=== PATIENT | male | born 1945 | race Caucasian/White ===

== ENCOUNTER 2019-11-19 11:52 | Emergency (ER) | payer OTHER ==
[2019-11-19 12:12] VITALS: RESP 18; TEMP 98.3
[2019-11-19] MEDS ORDERED: SODIUM CHLORIDE 0.9% 1,000 ML IV STA (12:37)
[2019-11-19] MEDS ORDERED: KETOROLAC 15 MG/ML 1 ML VIAL IVP STA (12:37)
--- NOTE | 2019-11-19 13:19 | ED ---
General Adult HPI - General Chief complaint: Abdominal Pain Stated complaint: Back Pain-poss kidney stone Time Seen by Provider: 11/19/19 12:22 Source: patient Mode of arrival: wheelchair Limitations: no limitations - History of Present Illness Initial comments: patient is a 73-year-old male, history dementia, presenting to emergency Department with complaints of left-sided low back and left abdominal pain has been going on for 6 days. Patient's is here with him and is helping with history. states that they went to [facility] 3 days ago and was found to have a large kidney stone and decreased kidney function. Patient states they wanted to admit him over patient would not stay. states they have been out most of the night with pain and unable to sleep. Patient was not given any pain meds. states that patient was having intermittent fevers but has not had any in the last 24 hours. Patient has had mild nausea, no vomiting or diarrhea. Does admit to history of colon cancer and does have mesh in his abdomen as well as appendectomy. He denies any chest pains, shortness of breath. He has no further complaints at this time. Upon arrival to the ER, his vital signs are stable. - Related Data Previous Rx's Medication Instructions Recorded Hydrocodone/Acetaminophen [[place] 1 tab PO Q6HR PRN #10 tab 11/19/19 5-325] Tamsulosin [Flomax] 0.4 mg PO DAILY #7 cap 11/19/19 Allergies Allergy/AdvReac Type Severity Reaction Status Date / Time Penicillins Allergy Rash/Hives Verified 11/19/19 12:16 Review of Systems ROS Statement: Those systems with pertinent positive or pertinent negative responses have been documented in the HPI. ROS Other: All systems not noted in ROS Statement are negative. Past Medical History Past Medical History: Cancer, Dementia, Hypertension History of Any Multi-Drug Resistant Organisms: None Reported Past Surgical History: Appendectomy, Hernia Repair Additional Past Surgical History / Comment(s): colon cancer surgery, Past Psychological History: No Psychological Hx Reported Smoking Status: Former smoker Past Alcohol Use History: None Reported Past Drug Use History: None Reported General Exam - General Exam Comments Initial Comments: GENERAL: Patient is well-developed and well-nourished. Patient is nontoxic and in no acute distress. HEAD: Atraumatic, normocephalic. EYES: Pupils equal round and reactive to light, extraocular movements intact, sclera anicteric, conjunctiva are normal. Eyelids were unremarkable. ENT: TMs normal, nares patent, oropharynx clear without exudates. Moist mucous membranes. NECK: Normal range of motion, supple without lymphadenopathy or JVD. LUNGS: Unlabored respirations. Breath sounds clear to auscultation bilaterally and equal. No wheezes rales or rhonchi. HEART: Regular rate and rhythm without murmurs, rubs or gallops. ABDOMEN: left-sided abdominal pain, left flank pain. Soft, normoactive bowel sounds. No guarding, no rebound. No masses appreciated. : Deferred MUSCULOSKELETAL: Normal extremities with adequate strength and normal range of motion, no pitting or edema. No clubbing or cyanosis. NEUROLOGICAL: Patient is alert and oriented x 3. Motor and sensory are also intact. Cranial nerves II through XII grossly intact. Symmetrical smile. Normal speech, normal gait. history of dementia. PSYCH: Normal mood, normal affect. SKIN: Warm, Dry, normal turgor, no rashes or lesions noted. Limitations: no limitations Course Vital Signs 11/19/19 11/19/19 12:07 14:42 Temperature 98.3 F Pulse Rate 61 65 Respiratory 18 18 Rate Blood Pressure 155/87 120/78 O2 Sat by Pulse 98 98 Oximetry Medical Decision Making - Medical Decision Making Patient is a 73-year-old male here for a recheck of his left-sided kidney stone. He was seen at [facility] 3 days ago. We did obtain records from them. Current vitals are stable. Patient's white count is normal, BUN is 32, creatinine is 2.42 which has improved from 3 days ago, which were 40/3.11. Lactic acid is normal, urine shows no evidence of infection. Patient is currently on Keflex. I did review computed tomography scan that was performed 2 days ago reveals a 5 mm obstructing calculus in the left ureter with some left- sided hydronephrosis, multiple small calculi in the right kidney and in the left kidney. patient was given pain control, fluids here in the ER. He has been stable, states his pain is minimal at this time. I discussed with patient and his that he is stable for discharge. I will prescribe them Flomax, pain control. He states he has not been nauseous. I did give him urology follow-up as well. Patient and are in agreement with this plan of care. He is stable for discharge. Return parameters were discussed with the patient and he verbalized understanding. Case discussed with Dr. Delgado. - Lab Data Result diagrams: 11/19/19 13:34 11/19/19 13:34 Lab Results 11/19/19 11/19/19 11/19/19 Range/Units 13:34 13:34 13:34 WBC 9.1 (3.8-10.6) k/uL RBC 4.48 (4.30-5.90) m/uL Hgb 12.8 L (13.0-17.5) gm/dL Hct 38.4 L (39.0-53.0) % MCV 85.5 (80.0-100.0) fL MCH 28.5 (25.0-35.0) pg MCHC 33.3 (31.0-37.0) g/dL RDW 12.9 (11.5-15.5) % Plt Count 215 (150-450) k/uL Neutrophils % 78 % Lymphocytes % 10 % Monocytes % 9 % Eosinophils % 1 % Basophils % 1 % Neutrophils # 7.1 (1.3-7.7) k/uL Lymphocytes # 0.9 L (1.0-4.8) k/uL Monocytes # 0.8 (0-1.0) k/uL Eosinophils # 0.1 (0-0.7) k/uL Basophils # 0.1 (0-0.2) k/uL Sodium 134 L (137-145) mmol/L Potassium 4.8 (3.5-5.1) mmol/L Chloride 102 (98-107) mmol/L Carbon Dioxide 25 (22-30) mmol/L Anion Gap 7 mmol/L BUN 32 H (9-20) mg/dL Creatinine 2.42 H (0.66-1.25) mg/dL Est GFR (CKD-EPI)AfAm 29 (>60 ml/min/1.73 sqM) Est GFR (CKD-EPI)NonAf 25 (>60 ml/min/1.73 sqM) Glucose 89 (74-99) mg/dL Plasma Lactic Acid Micky (0.7-2.0) mmol/L Calcium 9.9 (8.4-10.2) mg/dL Total Bilirubin 0.7 (0.2-1.3) mg/dL AST 16 L (17-59) U/L ALT 10 (4-49) U/L Alkaline Phosphatase 62 (38-126) U/L Total Protein 5.9 L (6.3-8.2) g/dL Albumin 3.3 L (3.5-5.0) g/dL Urine Color Yellow Urine Appearance Clear (Clear) Urine pH 5.5 (5.0-8.0) Ur Specific [place] 1.023 (1.001-1.035) Urine Protein Trace H (Negative) Urine Glucose (UA) Negative (Negative) Urine Ketones Negative (Negative) Urine Blood Trace H (Negative) Urine Nitrite Negative (Negative) Urine Bilirubin Negative (Negative) Urine Urobilinogen <2.0 (<2.0) mg/dL Ur Leukocyte Esterase Negative (Negative) Urine RBC 3 (0-5) /hpf Urine WBC 2 (0-5) /hpf Ur Squamous Epith Cells 1 (0-4) /hpf Urine Mucus Rare H (None) /hpf 11/19/19 Range/Units 13:34 WBC (3.8-10.6) k/uL RBC (4.30-5.90) m/uL Hgb (13.0-17.5) gm/dL Hct (39.0-53.0) % MCV (80.0-100.0) fL MCH (25.0-35.0) pg MCHC (31.0-37.0) g/dL RDW (11.5-15.5) % Plt Count (150-450) k/uL Neutrophils % % Lymphocytes % % Monocytes % % Eosinophils % % Basophils % % Neutrophils # (1.3-7.7) k/uL Lymphocytes # (1.0-4.8) k/uL Monocytes # (0-1.0) k/uL Eosinophils # (0-0.7) k/uL Basophils # (0-0.2) k/uL Sodium (137-145) mmol/L Potassium (3.5-5.1) mmol/L Chloride (98-107) mmol/L Carbon Dioxide (22-30) mmol/L Anion Gap mmol/L BUN (9-20) mg/dL Creatinine (0.66-1.25) mg/dL Est GFR (CKD-EPI)AfAm (>60 ml/min/1.73 sqM) Est GFR (CKD-EPI)NonAf (>60 ml/min/1.73 sqM) Glucose (74-99) mg/dL Plasma Lactic Acid Micky 1.3 (0.7-2.0) mmol/L Calcium (8.4-10.2) mg/dL Total Bilirubin (0.2-1.3) mg/dL AST (17-59) U/L ALT (4-49) U/L Alkaline Phosphatase (38-126) U/L Total Protein (6.3-8.2) g/dL Albumin (3.5-5.0) g/dL Urine Color Urine Appearance (Clear) Urine pH (5.0-8.0) Ur Specific [place] (1.001-1.035) Urine Protein (Negative) Urine Glucose (UA) (Negative) Urine Ketones (Negative) Urine Blood (Negative) Urine Nitrite (Negative) Urine Bilirubin (Negative) Urine Urobilinogen (<2.0) mg/dL Ur Leukocyte Esterase (Negative) Urine RBC (0-5) /hpf Urine WBC (0-5) /hpf Ur Squamous Epith Cells (0-4) /hpf Urine Mucus (None) /hpf Disposition Clinical Impression: Left flank pain, Left ureteral calculus Disposition: HOME SELF-CARE Condition: Stable Instructions (If sedation given, give patient instructions): Kidney Stones (ED) Additional Instructions: Please return to the Emergency Department if symptoms worsen or any other concerns. Take medications as prescribed. Continue with already prescribed antibiotic. Follow up with urologist as discussed. Prescriptions: Tamsulosin [Flomax] 0.4 mg PO DAILY #7 cap Hydrocodone/Acetaminophen [[place] 5-325] 1 tab PO Q6HR PRN #10 tab PRN Reason: Pain Is patient prescribed a controlled substance at d/c from ED?: Yes When asked, does pt state using other controlled substances?: No If prescribed controlled substance>3 days was MAPS reviewed?: Prescribed <3 Days If opioid is for acute pain is fill amount 7 days or less?: Yes If Rx opioid, was Start Talking consent form obtained?: Yes Referrals: [facility],Clinic [REFERRING] - 1-2 days Alonzo Abbasi MD [STAFF PHYSICIAN] - 1-2 days
[2019-11-19 13:46] LABS: Basophils # (A) 0.1 k/uL (0-0.2); Basophils % (A) 1 %; Eosinophils # (A) 0.1 k/uL (0-0.7); Eosinophils % (A) 1 %; HCT 38.4 % (39.0-53.0); HGB 12.8 gm/dL (13.0-17.5); Lymphocytes # (A) 0.9 k/uL (1.0-4.8); Lymphocytes % (A) 10 %; MCH 28.5 pg (25.0-35.0); MCHC 33.3 g/dL (31.0-37.0); MCV 85.5 fL (80.0-100.0); Monocytes # (A) 0.8 k/uL (0-1.0); Monocytes % (A) 9 %; Neutrophils # (A) 7.1 k/uL (1.3-7.7); Neutrophils % (A) 78 %; Platelet Count 215 k/uL (150-450); RBC 4.48 m/uL (4.30-5.90); RDW 12.9 % (11.5-15.5); WBC 9.1 k/uL (3.8-10.6)
[2019-11-19 13:56] LABS: Appearance,Urine Clear (Clear); Bilirubin,Urine Negative (Negative); Blood,Urine Trace (Negative); Color,Urine Yellow; Glucose,Urine (UA) Negative (Negative); Ketones,Urine Negative (Negative); Leukocyte Esterase,Urine Negative (Negative); Mucus,Urine Rare /hpf; Nitrite,Urine Negative (Negative); PH, Urine 5.5 (5.0-8.0); Protein,Urine Trace (Negative); RBC,Urine 3 /hpf (0-5); Specific Gravity,Urine 1.023 (1.001-1.035); Squamous Epithelial Cell,Urine 1 /hpf (0-4); Urobilinogen,Urine <2.0 mg/dL (<2.0); WBC,Urine 2 /hpf (0-5)
[2019-11-19 14:01] LABS: Albumin 3.3 g/dL (3.5-5.0); Calcium 9.9 mg/dL (8.4-10.2); Potassium 4.8 mmol/L (3.5-5.1); Total Bilirubin 0.7 mg/dL (0.2-1.3); Total Protein 5.9 g/dL (6.3-8.2)
[2019-11-19 14:43] VITALS: BP 120/78; PULSE 65
== END 2019-11-19 14:42 | disposition home or self-care (01) ==
LOC: EC 11:52
DX: N13.2 Hydronephrosis with renal and ureteral calculous obstruction (principal); F03.90 Unspecified dementia, unspecified severity, without behavioral disturbance, psychotic disturbance, mood disturbance, and anxiety; Z88.0 Allergy status to penicillin; Z87.891 Personal history of nicotine dependence; Z90.89 Acquired absence of other organs; Z85.038 Personal history of other malignant neoplasm of large intestine
CPT/HCPCS: 99284; 96374; 96361; 36415; 80053; 83605; 85025; 81001; J1885

== ENCOUNTER 2020-10-21 08:38 | Day surgery (SDC) | payer OTHER ==
[~2020-10-21 08:38] MED LIST: LACTATED RINGERS 1,000 ML IV SCH
[2020-10-21 09:59] VITALS: TEMP 97.1
[2020-10-21] MEDS ORDERED: LACTATED RINGERS 1,000 ML IV ONE ×2 (10:10)
[2020-10-21] MEDS ORDERED: LIDOCAINE 1% INJ 10MG/ML (20 ML MDV) ONE (10:11)
[2020-10-21] MEDS ORDERED: PROPOFOL 10 MG/ML 20 ML VIAL IV ONE (10:11)
--- NOTE | 2020-10-21 10:57 | P.PCN ---
Date of Procedure: 10/21/20 Description of Procedure: BRIEF HISTORY: Patient is a 74-year-old male presenting for outpatient colonoscopy for evaluation of history of polyps of the colon. He is status post partial colonic resection in the past. No change in bowel habits or blood per rectum. The patient relates his last colonoscopy was 3 years ago. PROCEDURE PERFORMED: Colonoscopy. PREOPERATIVE DIAGNOSIS: Personal history of colon polyps, last colonoscopy reported as 3 years ago. ESTIMATED BLOOD LOSS: Minimal. IV sedation per Anesthesia. PROCEDURE: After informed consent was obtained, the patient, was brought into the endoscopy unit. IV sedation was administered by Anesthesia under continuous monitoring. Digital rectal examination was normal. Initially the Olympus CF-190 flexible video colonoscope was then inserted in the rectum, gradually advanced into the cecum without any difficulty. Careful examination was performed as the scope was gradually being withdrawn. Ileocecal valve and the appendiceal orifice were visualized and appeared normal. Prep was excellent. Mucosa of the cecum, ascending colon, transverse colon, descending colon, sigmoid colon, and rectum appeared normal, except for evidence of a prior partial colectomy with reanastomosis. The patient also had moderate left colonic diverticulosis. Retroflexion was performed in the rectum and no lesions were seen, and moderate internal hemorrhoids were noted. The patient tolerated the procedure well. IMPRESSION: Normal-appearing colon with evidence of prior partial colectomy with intact anastomosis in the right colon. Moderate left colonic diverticulosis. Internal hemorrhoids. RECOMMENDATIONS: Findings of this examination were discussed with the patient and his family. Okay to resume diet. Okay to resume medications. Recommend repeat colonoscopy in 5 years if medically stable at that time for history of colon polyps
[2020-10-21 10:59] VITALS: BP 149/74; PULSE 54; RESP 16
== END 2020-10-21 11:21 | disposition home or self-care (01) ==
LOC: ORWHC2ENDO 08:38
PROVIDERS: ATTEND Internal Medicine
DX: K57.30 Diverticulosis of large intestine without perforation or abscess without bleeding (principal); K64.8 Other hemorrhoids; E78.5 Hyperlipidemia, unspecified; I12.9 Hypertensive chronic kidney disease with stage 1 through stage 4 chronic kidney disease, or unspecified chronic kidney disease; N18.9 Chronic kidney disease, unspecified; Z87.442 Personal history of urinary calculi; F03.90 Unspecified dementia, unspecified severity, without behavioral disturbance, psychotic disturbance, mood disturbance, and anxiety
CPT/HCPCS: 45378; J2001; J2704

== ENCOUNTER 2024-06-28 16:47 | Inpatient (IN) | payer OTHER, MEDICARE ==
[2024-06-28] MEDS: ACETAMINOPHEN TAB 325 MG TAB PO STA (17:33)
[2024-06-28 18:24] LABS: Basophils # (A) 0.1 k/uL (0-0.2); Basophils % (A) 1 %; Eosinophils # (A) 0.1 k/uL (0-0.7); Eosinophils % (A) 1 %; HCT 39.8 % (39.0-53.0); HGB 13.1 gm/dL (13.0-17.5); Lymphocytes # (A) 1.5 k/uL (1.0-4.8); Lymphocytes % (A) 15 %; MCH 28.6 pg (25.0-35.0); MCHC 32.9 g/dL (31.0-37.0); Mean Platelet Volume 6.6; Monocytes # (A) 0.5 k/uL (0-1.0); Monocytes % (A) 5 %; Neutrophils # (A) 7.4 k/uL (1.3-7.7); Neutrophils % (A) 77 %; Platelet Count 303 k/uL (150-450); RBC 4.58 m/uL (4.30-5.90); RDW 13.8 % (11.5-15.5); WBC 9.5 k/uL (3.8-10.6)
[2024-06-28] MEDS: SODIUM CHLORIDE 0.9% 1,000 ML IV STA (18:25)
--- NOTE | 2024-06-28 18:30 | XR ---
EXAMINATION TYPE: XR chest 1V DATE OF EXAM: 06/28/2024 6:22 PM COMPARISON: None TECHNIQUE: XR chest 1V Frontal view of the chest. CLINICAL INDICATION:Male, 78 years old with history of pain; FINDINGS: The patient is rotated which limits evaluation. Lungs/Pleura: There is no evidence of pleural effusion, focal consolidation, or pneumothorax. Pulmonary vascularity: Unremarkable. Heart/mediastinum: Abnormal contour of the upper right paratracheal stripe with soft tissue. Musculoskeletal: No acute osseous pathology. IMPRESSION: Abnormal contour of the upper right paratracheal stripe with soft tissue. This could be seen with an apical mass versus lymphadenopathy versus other etiologies. Recommend further evaluation with CT marisa st with IV contrast. [facility], , 06/28/2024 6:28 PM
--- NOTE | 2024-06-28 18:32 | XR ---
EXAMINATION TYPE: XR Hip LT and AP Pelvis DATE OF EXAM: 06/28/2024 6:22 PM INDICATION: Patient age:Male; 78 years old; Reason for study: pain, fall; PHH. pain COMPARISON: None. TECHNIQUE: The left hip was examined in the frontal and lateral projections and a AP pelvis. FINDINGS: No evidence of any acute osseous pathology, joint dislocation, or soft tissue swelling. Pos tsurgical changes with mesh anchor clips identified in the abdomen. Couple surgical clips within the pelvis. Moderate amount of stool is present within the rectum. Degenerative disease of the visualized lower lumbar spine. IMPRESSION: No acute osseous pathology. [facility], , 06/28/2024 6:29 PM
[2024-06-28 18:42] LABS: ALT 22 U/L (4-49); AST 18 U/L (17-59); African American GFR (CKD) 45 (>60 ml/min/1.73 sqM); Albumin 3.1 g/dL (3.5-5.0); Alkaline Phosphatase 90 U/L (38-126); Anion Gap 5 mmol/L; Blood Urea Nitrogen 18 mg/dL (9-20); Carbon Dioxide 29 mmol/L (22-30); Chloride 103 mmol/L (98-107); Glucose 101 mg/dL (74-99); Magnesium 2.2 mg/dL (1.6-2.3); Non-African American GFR(CKD) 39 (>60 ml/min/1.73 sqM); Potassium 4.7 mmol/L (3.5-5.1); Sodium 137 mmol/L (137-145); Total Bilirubin 0.4 mg/dL (0.2-1.3)
[2024-06-28] MEDS ORDERED: RX INFO: IV CONTRAST WAS GIVEN 1 EACH MISC MISCELLANE PRN (18:53)
[2024-06-28 19:06] LABS: Prothrombin Time 10.6 sec (10.0-12.5)
[2024-06-28 19:10] LABS: Partial Thromboplastin Time 21.2 sec (22.0-30.0)
--- NOTE | 2024-06-28 19:26 | CT ---
EXAMINATION TYPE: CT hip LT wo con CT DLP: 362.6 mGycm, Automated exposure control for dose reduction was used. DATE OF EXAM: 06/28/2024 7:19 PM COMPARISON: Extremity radiograph same day. CLINICAL INDICATION:Male, 78 years old with history of scan through mid femur on left; PHH, left hip pain following fall TECHNIQUE: Axial images were obtained of the left hip without the use of IV contrast. Additional cor onal and sagittal reformatted images and soft tissue and bone window were obtained for review. 3-D re construction was created on a separate workstation. FINDINGS: Diffuse bone demineralization which limits evaluation. Acute comminuted nondisplaced fractu re involving the left greater trochanter of the proximal femur. No dislocation. No significant soft t issue swelling or joint effusion is identified. No focal muscular atrophy or edema is identified. Distal colonic diverticulosis. Prostatomegaly with the prostate measuring up to 6.0 cm in transverse dimension. This indents upon the urinary bladder base. Small prostate calcifications. Pelvic phleboli ths. Few layering calculi within the urinary bladder measuring up to 1.1 cm. IMPRESSION: 1. Acute comminuted nondisplaced fracture involving the greater trochanter of the proximal left femu r. 2. Colonic diverticulosis without visualized acute diverticulitis. 3. Prostatomegaly. 4. Urinary bladder calculi. [facility], , 06/28/2024 7:24 PM
--- NOTE | 2024-06-28 19:37 | CT ---
EXAMINATION TYPE: CT chest w con CT DLP: 364.6 mGycm, Automated exposure control for dose reduction was used. DATE OF EXAM: 06/28/2024 7:19 PM COMPARISON: Chest radiograph from same day. CLINICAL INDICATION:Male, 78 years old with history of abn chest xray; PHH, abnormal cxr, fall TECHNIQUE: Multiple axial images were obtained through the chest following the administration of 100 cc of Isovue 300. . Coronal and sagittal reformats reviewed. FINDINGS: LUNGS/ PLEURA: No pleural effusion, pneumothorax, or focal consolidation. A few scattered small calci fied granulomas. Mild bilateral lower lobe dependent subsegmental atelectasis. Peripheral left lower lobe 2.4 mm pulmonary nodule (series 205, image 35). Elevation of the right hemidiaphragm. AIRWAY: Patent and unremarkable.. HEART: Size within normal limits.No pericardial effusion. Mild coronary artery calcifications present . MEDIASTINUM: Centrally calcified nonenlarged right paratracheal lymph node. VASCULATURE: No aortic aneurysm. Mild atherosclerotic calcification of the aorta. Abnormality on marisa st radiograph relates to positioning of the right subclavian artery, right common carotid artery, and right brachiocephalic vein. MUSCULOSKELETAL: Schmorl's nodes versus central superior endplate compression deformities of the L1 a nd L2 vertebral bodies. No retropulsion. Approximately 5-10% height loss. No paraspinal edema. Mild m ultilevel degenerative disc disease. SOFT TISSUES/LYMPH NODES: Minimal bilateral gynecomastia. LOWER NECK: No significant findings. UPPER ABDOMEN: Postsurgical changes of the anterior abdominal wall with mesh. Small hiatal hernia. Se veral right renal cortical cysts with largest measuring up to 1.8 cm in the lower pole. There is a cy stic lesion with abnormal heterogenous hyperdensity involving the right mid kidney measuring up to 2. 2 cm (series 201, image 65). Multiple nonobstructive bilateral renal calculi with largest in the infe rior pole of the right kidney measuring up to 1.3 cm. Largest within the left kidney measures up to 0 .6 cm. Descending colon diverticulosis without evidence for acute diverticulitis. Partial visualizati on of anastomosis involving the ascending colon. IMPRESSION: 1. No acute thoracic process. 2. Abnormality on chest radiograph relates to positioning of the right subclavian artery, right commo n carotid artery, and right brachiocephalic vein. 3. Abnormal 2.2 cm right mid kidney cystic lesion with suggested enhancement. Raises concern for tricia l cell carcinoma until proven otherwise. Other etiologies include a proteinaceous/hemorrhagic cyst. U rology consultation is recommended with consideration for MR abdomen renal mass protocol. 4. Nonobstructive bilateral renal calculi with right renal simple appearing cysts. 5. Peripheral left lower lobe 2.4 mm pulmonary nodule. According to Fleischner's criteria, in a low-r isk patient no follow up is recommended. In a high-risk patient consider optional CT chest in 12 kandice hs. 6. Sequelae of prior granulomatous disease. 7. Colonic diverticulosis. 8. Schmorl's nodes versus age indeterminate superior central endplate compression deformities involvi ng the L1 and L2 vertebral bodies. Correlate with point tenderness. [facility], , 06/28/2024 7:35 PM
[2024-06-28 19:54] LABS: Appearance,Urine Clear (Clear); Bilirubin,Urine Negative (Negative); Blood,Urine Negative (Negative); Color,Urine Yellow; Glucose,Urine (UA) Negative (Negative); Ketones,Urine Negative (Negative); Leukocyte Esterase,Urine Moderate (Negative); Mucus,Urine Few /hpf; Nitrite,Urine Negative (Negative); PH, Urine 5.5 (5.0-8.0); Protein,Urine Trace (Negative); RBC,Urine 4 /hpf (0-5); Squamous Epithelial Cell,Urine <1 /hpf (0-4); Urobilinogen,Urine <2.0 mg/dL (<2.0); WBC,Urine 25 /hpf (0-5)
[2024-06-28] MEDS ORDERED: NALOXONE 0.4 MG/ML 1 ML VIAL IV PRN (20:36)
[2024-06-28] MEDS ORDERED: IBUPROFEN 400 MG TAB PO PRN (20:36)
[2024-06-28] MEDS ORDERED: ONDANSETRON 4 MG/2 ML VIAL IVP PRN (20:36)
[2024-06-28] MEDS: SODIUM CHLORIDE 0.9% 1,000 ML IV ONE (21:01)
[2024-06-28] MEDS: HEPARIN SODIUM,PORCINE 5,000 UNIT/ML 1 ML VIAL SQ SCH (21:02)
--- NOTE | 2024-06-28 21:07 | ED ---
General Adult HPI - General Chief complaint: Fall Stated complaint: fall, hip injury Time Seen by Provider: 06/28/24 17:20 Source: patient, EMS, RN notes reviewed, old records reviewed Mode of arrival: EMS Limitations: no limitations - History of Present Illness Initial comments: Patient is an 78-year-old male who presents emergency department for a fall. Is not on blood thinners. Has a history of dementia, colon cancer, hypertension. Fall was witnessed by pedestrians as well as his . Patient tripped over a curb. Ended up landing directly on his left hip. Did not hit his head. Did not lose consciousness. Denies any back pain, abdominal pain, chest pain, extremity pain other than left hip. Unable to move the left hip much without pain. Denies any back pain. Presents for further evaluation at this time. - Related Data Home Medications Medication Instructions Recorded Confirmed Cyanocobalamin (Vitamin B-12) 1,000 mcg PO DAILY 10/17/20 06/28/24 [Vitamin B-12] Cinacalcet [Sensipar] 30 mg PO DAILY 06/28/24 06/28/24 Donepezil [Aricept] 20 mg PO DAILY 06/28/24 06/28/24 lisinopriL [Zestril] 10 mg PO BID 06/28/24 06/28/24 Allergies Allergy/AdvReac Type Severity Reaction Status Date / Time Penicillins Allergy Rash/Hives Verified 10/21/20 09:51 Review of Systems ROS Statement: Those systems with pertinent positive or pertinent negative responses have been documented in the HPI. Review of Systems: CONST: Denies fever EYES: Denies blurry vision ENT: Denies nasal congestion C/V: Denies Chest pain RESP: Denies shortness of breath GI: Denies abdominal pain : Denies dysuria SKIN: Denies rash. MSK: Endorses left hip pain NEURO: Denies headache ROS Other: All systems not noted in ROS Statement are negative. Past Medical History Past Medical History: Cancer, Dementia, Hypertension Additional Past Medical History / Comment(s): colon cancer 2012 History of Any Multi-Drug Resistant Organisms: None Reported Past Surgical History: Appendectomy, Bowel Resection, Hernia Repair Additional Past Surgical History / Comment(s): colon cancer surgery, Past Anesthesia/Blood Transfusion Reactions: No Reported Reaction Past Psychological History: No Psychological Hx Reported Smoking Status: Former smoker General Exam - General Exam Comments Initial Comments: General: Appears in mild to moderate distress secondary to left hip pain. HEAD: Normal with no signs of head trauma. Negative Daily sign. Negative raccoon eyes. EYES: PERRLA, EOMI, conjunctiva normal, no discharge. Pupils are 3 mm and equal bilaterally. ENT: Hearing grossly intact, normal oropharynx. RESPIRATORY: Clear breath sounds bilaterally. No wheezes, rales, or rhonchi. C/V: Regular rate and rhythm. S1 and S2 auscultated, no edema, peripheral pulses 2+ and intact throughout ABD: Abd is soft, nontender, nondistended EXT: Normal range of motion, no obvious deformity. Tenderness to palpation over the left hip. Reduced range of motion of the left hip secondary to pain. No midline cervical, thoracic, lumbar spine tenderness to palpation. No spinal step-offs or deformities. SKIN: No rashes or lesions observed on exposed skin. NEURO: Alert and oriented x 2-3. This is his baseline. No focal deficits other than decreased movement of left lower extremity secondary to pain. GCS 15. Limitations: no limitations Course Vital Signs 06/28/24 16:51 Temperature 98.3 F Pulse Rate 56 L Respiratory 16 Rate Blood Pressure 137/71 O2 Sat by Pulse 96 Oximetry Medical Decision Making - Medical Decision Making Was pt. sent in by a medical professional or institution (MAKENNA Orozco, CARDIOVASCULAR TECH, urgent care, hospital, or assisted...) When possible be specific @ -No Did you speak to anyone other than the patient for history (EMS, parent, family, police, friend...)? What history was obtained from this source @ -No Did you review nursing and triage notes (agree or disagree)? Why? @ -I reviewed and agree with nursing and triage notes Were old charts reviewed (outside hosp., previous admission, EMS record, old EKG, old radiological studies, urgent care reports/EKG's, assisted records)? Report findings @ -No old charts were reviewed Differential Diagnosis (chest pain, altered mental status, abdominal pain women, abdominal pain men, vaginal bleeding, weakness, fever, dyspnea, syncope, head ache, dizziness, GI bleed, back pain, seizure, CVA, palpatations, mental health, musculoskeletal)? @ -Differential Musculoskeletal Muscular strain, contusion, ligament sprain, fracture, arthritis, septic arthritis, bursitis, cellulitis, muscle spasm, nerve compression, DVT, arterial occlusion, herpes zoster, electrolyte abnormality, tumor.... This is not meant to be in all inclusive list EKG interpreted by me (3pts min.). @ -As above X-rays interpreted by me (1pt min.). @ -Chest x-ray shows possible enlarged lymph nodes or apical mass. Could be positional. Recommended CT chest by radiology. Hip and pelvis x-ray negative for any obvious acute traumatic injury. CT interpreted by me (1pt min.). @ -CT chest with contrast revealed that the abnormality seen on x-ray was likely related to positioning of the right subclavian artery. Patient has a cystic kidney lesion lesion as well on the right kidney of unknown etiology. Patient also has a left lower lobe pulmonary nodule which she does have a history of. CT left hip revealed an acute comminuted nondisplaced fracture involving the greater trochanter of the proximal left femur. U/S interpreted by me (1pt. min.). @ -None done What testing was considered but not performed or refused? (CT, X-rays, U/S, labs)? Why? @ -None What meds were considered but not given or refused? Why? @ -None Did you discuss the management of the patient with other professionals (professionals i.e. , PA, CARDIOVASCULAR TECH, lab, RT, psych nurse, social media analyst, computer forensics analyst, teacher, combat systems officer, corrections caseworker)? Give summary @ -Discussed with admitting provider, orthopedic on-call Dr. Conde who accepted the admission. He did request MRI be ordered which was done. I spoke with the medical consult, Dr. Nolan who accepted the consult. He admits for Dr. Quiñonez Was smoking cessation discussed for >3mins.? @ -No Was critical care preformed (if so, how long)? @ -No Were there social determinants of health that impacted care today? How? (Homelessness, low income, unemployed, alcoholism, drug addiction, transportation, low edu. Level, literacy, decrease access to med. care, [facility], rehab)? @ -No Was there de-escalation of care discussed even if they declined (Discuss DNR or withdrawal of care, Hospice)? DNR status @ -No What co-morbidities impacted this encounter? (DM, HTN, Smoking, COPD, CAD, Cancer, CVA, ARF, Chemo, Hep., AIDS, mental health diagnosis, sleep apnea, morbid obesity)? @ -None Was patient admitted / discharged? Hospital course, mention meds given and route, prescriptions, significant lab abnormalities, going to OR and other per tinent info. @ -Based on the patient's presentation and physical exam, presents emergency department, presents with a fall not on blood thinners. Does not meet trauma activation criteria. Does not meet code coag. Patient does have cervical collar in place but this was cleared as she has no injury to his neck. No concern for brain injury. He is acting his normal baseline. Will obtain x-rays of the chest and pelvis. Also obtain basic screening labs and EKG. He was in agreement this plan. Vital signs within acceptable limits. Patient given Tylenol for pain. Started on IV fluids. EKG shows no signs of acute ischemia. Laboratory studies are unremarkable as well. Patient has known CKD which seems to be stable for the patient. X-rays inconclusive for any obvious injury left hip. Patient chest x- ray does have possible apical mass and recommend CT chest. CT chest revealed no evidence of apical mass and it was likely positional and has normal arteries at bedside but patient does have pulmonary nodules which are chronic, as well as a renal mass of unknown etiology. Nephrology will be consulted for this as well as Dr. aviles. Patient's CT of the hip does reveal left greater trochanteric fracture. Update the patient and family. Patient will be admitted under orthopedics. I spoke with Dr. Conde who accepted the admission and requested MRI be ordered to the left hip. Fall precautions ordered. Patient is n.p.o. after midnight. MRI ordered. I spoke with Dr. Nolan who accepted the medical consult. Undiagnosed new problem with uncertain prognosis? @ -No Drug Therapy requiring intensive monitoring for toxicity (Heparin, Nitro, Insulin, Cardizem)? @ -No Were any procedures done? @ -No Diagnosis/symptom? @ -Left greater trochanteric fracture, fall, pulmonary nodule, renal mass Acute, or Chronic, or Acute on Chronic? @ -Acute Uncomplicated (without systemic symptoms) or Complicated (systemic symptoms)? @ -Complicated Side effects of treatment? @ -No Exacerbation, Progression, or Severe Exacerbation? @ -No Poses a threat to life or bodily function? How? (Chest pain, USA, DC, pneumonia, PE, COPD, DKA, ARF, appy, cholecystitis, CVA, Diverticulitis, Homicidal, Suicidal, threat to staff... and all critical care pts) @ -Yes - Lab Data Result diagrams: 06/28/24 18:06 06/28/24 18:06 Lab Results 06/28/24 06/28/24 06/28/24 Range/Units 18:06 18:06 18:06 WBC 9.5 (3.8-10.6) k/uL RBC 4.58 (4.30-5.90) m/uL Hgb 13.1 (13.0-17.5) gm/dL Hct 39.8 (39.0-53.0) % MCV 87.0 (80.0-100.0) fL MCH 28.6 (25.0-35.0) pg MCHC 32.9 (31.0-37.0) g/dL RDW 13.8 (11.5-15.5) % Plt Count 303 (150-450) k/uL MPV 6.6 Neutrophils % 77 % Lymphocytes % 15 % Monocytes % 5 % Eosinophils % 1 % Basophils % 1 % Neutrophils # 7.4 (1.3-7.7) k/uL Lymphocytes # 1.5 (1.0-4.8) k/uL Monocytes # 0.5 (0-1.0) k/uL Eosinophils # 0.1 (0-0.7) k/uL Basophils # 0.1 (0-0.2) k/uL PT 10.6 (10.0-12.5) sec INR 1.0 (<1.2) APTT 21.2 L (22.0-30.0) sec Sodium 137 (137-145) mmol/L Potassium 4.7 (3.5-5.1) mmol/L Chloride 103 (98-107) mmol/L Carbon Dioxide 29 (22-30) mmol/L Anion Gap 5 mmol/L BUN 18 (9-20) mg/dL Creatinine 1.65 H (0.66-1.25) mg/dL Est GFR (CKD-EPI)AfAm 45 (>60 ml/min/1.73 sqM) Est GFR (CKD-EPI)NonAf 39 (>60 ml/min/1.73 sqM) Glucose 101 H (74-99) mg/dL Calcium 10.0 (8.4-10.2) mg/dL Magnesium 2.2 (1.6-2.3) mg/dL Total Bilirubin 0.4 (0.2-1.3) mg/dL AST 18 (17-59) U/L ALT 22 (4-49) U/L Alkaline Phosphatase 90 (38-126) U/L Total Protein 6.0 L (6.3-8.2) g/dL Albumin 3.1 L (3.5-5.0) g/dL Urine Color Urine Appearance (Clear) Urine pH (5.0-8.0) Ur Specific Murphy (1.001-1.035) Urine Protein (Negative) Urine Glucose (UA) (Negative) Urine Ketones (Negative) Urine Blood (Negative) Urine Nitrite (Negative) Urine Bilirubin (Negative) Urine Urobilinogen (<2.0) mg/dL Ur Leukocyte Esterase (Negative) Urine RBC (0-5) /hpf Urine WBC (0-5) /hpf Ur Squamous Epith Cells (0-4) /hpf Urine Mucus (None) /hpf 06/28/24 Range/Units 19:30 WBC (3.8-10.6) k/uL RBC (4.30-5.90) m/uL Hgb (13.0-17.5) gm/dL Hct (39.0-53.0) % MCV (80.0-100.0) fL MCH (25.0-35.0) pg MCHC (31.0-37.0) g/dL RDW (11.5-15.5) % Plt Count (150-450) k/uL MPV Neutrophils % % Lymphocytes % % Monocytes % % Eosinophils % % Basophils % % Neutrophils # (1.3-7.7) k/uL Lymphocytes # (1.0-4.8) k/uL Monocytes # (0-1.0) k/uL Eosinophils # (0-0.7) k/uL Basophils # (0-0.2) k/uL PT (10.0-12.5) sec INR (<1.2) APTT (22.0-30.0) sec Sodium (137-145) mmol/L Potassium (3.5-5.1) mmol/L Chloride (98-107) mmol/L Carbon Dioxide (22-30) mmol/L Anion Gap mmol/L BUN (9-20) mg/dL Creatinine (0.66-1.25) mg/dL Est GFR (CKD-EPI)AfAm (>60 ml/min/1.73 sqM) Est GFR (CKD-EPI)NonAf (>60 ml/min/1.73 sqM) Glucose (74-99) mg/dL Calcium (8.4-10.2) mg/dL Magnesium (1.6-2.3) mg/dL Total Bilirubin (0.2-1.3) mg/dL AST (17-59) U/L ALT (4-49) U/L Alkaline Phosphatase (38-126) U/L Total Protein (6.3-8.2) g/dL Albumin (3.5-5.0) g/dL Urine Color Yellow Urine Appearance Clear (Clear) Urine pH 5.5 (5.0-8.0) Ur Specific Murphy 1.030 (1.001-1.035) Urine Protein Trace H (Negative) Urine Glucose (UA) Negative (Negative) Urine Ketones Negative (Negative) Urine Blood Negative (Negative) Urine Nitrite Negative (Negative) Urine Bilirubin Negative (Negative) Urine Urobilinogen <2.0 (<2.0) mg/dL Ur Leukocyte Esterase Moderate H (Negative) Urine RBC 4 (0-5) /hpf Urine WBC 25 H (0-5) /hpf Ur Squamous Epith Cells <1 (0-4) /hpf Urine Mucus Few H (None) /hpf - EKG Data -: EKG Interpreted by Me EKG Comments: 12-lead Electrocardiogram Interpretation Note EKG was reviewed and interpreted by myself. 12-lead ECG performed at 1753 is interpreted by me as revealing sinus bradycardia at a rate of 55 beats per minute. [place] is normal. CO interval is 159 ms, QRS patient's 103 ms, QTc is 457 ms.. There were no ST or T wave abnormalities to suggest myocardial ischemia or injury. R wave progression across the precordium was satisfactory. By my interpretation this EKG is non-diagnostic for acute ischemia. Disposition Clinical Impression: Fall, Greater trochanter fracture, Renal mass, Pulmonary nodule Disposition: ADMITTED IP TO THIS HOSP Condition: Stable Referrals: John Quiñonez MD [Primary Care Provider] - 1-2 days Time of Disposition: 20:36
[2024-06-28] MEDS: MORPHINE SULFATE 2 MG/ML SYRINGE IV PRN (23:25)
[2024-06-29 08:31] LABS: ALT 22 U/L (10-49); AST 14 U/L (14-35); Albumin 3.4 g/dL (3.8-4.9); Albumin/Globulin Ratio 1.42 Ratio (1.60-3.17); Alkaline Phosphatase 83 U/L (41-126); BUN/Creat Ratio 9.59 Ratio (12.00-20.00); Blood Urea Nitrogen 16.3 mg/dL (9.0-27.0); Calcium 9.8 mg/dL (8.7-10.3); Carbon Dioxide 28.8 mmol/L (21.6-31.8); Chloride 104 mmol/L (96-109); Globulin 2.4 g/dL (1.6-3.3); Glucose 96 mg/dL (70-110); Sodium 139 mmol/L (135-145); Total Bilirubin 0.4 mg/dL (0.3-1.2); Total Protein 5.8 g/dL (6.2-8.2)
[2024-06-29] MEDS: HYDROcodone/APAP 5-325MG 1 EACH TAB PO PRN (08:46)
[2024-06-29 08:50] LABS: Basophils # (A) 0.06 X 10*3/uL (0.00-0.10); Basophils % (A) 0.7 %; Eosinophils # (A) 0.02 X 10*3/uL (0.04-0.35); Eosinophils % (A) 0.2 %; HCT 37.6 % (39.6-50.0); HGB 12.1 g/dL (13.0-17.0); Lymphocytes # (A) 1.43 X 10*3/uL (0.90-5.00); MCH 29.1 pg (27.0-32.0); MCHC 32.2 g/dL (32.0-37.0); MCV 90.4 FL (80.0-97.0); Mean Platelet Volume 9.1 FL (9.5-12.2); Monocytes # (A) 0.98 X 10*3/uL (0.20-1.00); NRBC Per 100 WBC 0 X 10*3/uL (0.00-0.01); Neutrophils # (A) 6.38 X 10*3/uL (1.80-7.70); Neutrophils % (A) 71.7 %; Platelet Count 273 X 10*3/uL (140-440); RBC 4.16 X 10*6/uL (4.40-5.60); RDW 14.1 % (11.5-14.5); WBC 8.91 X 10*3/uL (4.50-10.00)
[2024-06-29] MEDS ORDERED: PANTOPRAZOLE 40 MG/10 ML VIAL IV SCH (09:00)
[2024-06-29] MEDS: lisinopriL 10 MG TAB PO SCH (10:12)
[2024-06-29] MEDS: DONEPEZIL 10 MG TAB PO SCH (10:12)
[2024-06-29] MEDS: PANTOPRAZOLE 40 MG TABLET PO SCH (10:12)
--- NOTE | 2024-06-29 12:41 | P.PN ---
Progress Note - Text Progress Note Date: 06/29/24 Detailed discussion was had with the patient and family regarding the nature of the injury. With a fracture as a result of minor trauma this is an indication of poor bone quality and they are encouraged to discuss further metabolic testing and workup with their primary care physician in coordination with our team and possibly even an enocrinologist. They sustained a fracture of the greater trochanter of the left hip however on further MRI imaging the fracture line is seen to extend throughout the intertrochanteric region greater than 50% of the intertrochanteric region. Based on their baseline mental status any attempted nonoperative interventions would require limited weightbearing to the left leg and after discussion with family it is unlikely that he would be able to comply with these weightbearing restrictions on a consistent basis. With that I do think there would be a considerable risk that the fracture could eventually complete and lead to a more significant injury if the patient was to not be able to comply with weightbearing restrictions. We discussed that stabilizing the bone would allow for immediate weightbearing and the inability to comply with weightbearing restrictions with his baseline cognitive dysfunction would no longer be an issue. We discussed that the most appropriate surgical option for this injury would be a cephalomedullary nail. The risks of surgery include scarring, risk of swelling and possible permanent swelling of the affected extremity, superficial vs deep infections, damage to surrounding structures including muscles, nerve, tendons, blood vessels, hardware failure, fracture mal or non union, need for additional future surgery including removal of hardware. Benefits include stabilizing the fracture and helping with baseline pain, providing the patient with the opportunity to weight bear on the extremity. We also discussed the likely post operative course after surgery including several days in the hospital after surgery and evaluation by the PT and OT staff to aid in determining the proper destination after their hospitalization, likely this will require a period of time at a rehab or nursing facility. We also discussed realistic expectations regarding function after this injury, the best case scenario is she returns to her baseline functional level but many times patients become more depending on support aids such as walkers/canes/or wheelchairs based on their previous level of function. Patient's and daughter who serves as his power of insurance attorney are in agreement with proceeding with surgery and his daughter has signed the consent form. Will plan for surgery tomorrow morning for left hip operative fixation with cephalomedullary implant. For now patient will be nonweightbearing to the left leg N.p.o. at midnight Appreciate medicine evaluation for preoperative assessment
--- NOTE | 2024-06-29 13:10 | MR ---
EXAMINATION TYPE: MR hip LT wo con DATE OF EXAM: 06/29/2024 11:28 AM CLINICAL INDICATION: Male, 78 years old with history of pre operative planning per Dr. conde; PHH, Pr e-Operative planning per Dr. Conde - Pt fell on hip off of a curb COMPARISON: Plain films TECHNIQUE: Multiplanar multi-sequential magnetic resonance imaging of the hip without contrast. IV Contrast: mL none FINDINGS: Joint spaces and alignment: Normal Joint/bursal fluid: There is small left joint effusion Articular cartilage: Normal Acetabular labrum: Intact no displaced labral tear given nonarthrogram techniques mild degeneration c hanges of the superior labrum mild osteophyte reformation of the superior acetabulum. Muscles/Tendons: Intact The tendons of the gluteal, hamstring, iliopsoas, and adductors are normal in within normal limits without evidence for edema and are intact. Abductor tendon insertions: Intact Intrapelvic structures: Normal Neurovascular structures: Normal Osseous structures: Low T1/T2 curvilinear line with increased bony edema on inversion recovery sequen shahnaz extending to the intertrochanteric region of the left femur. The femoral heads demonstrates luis l morphology and signal characteristics. No additional evidence of fracture. The sacroiliac joints a nd pubic symphysis are noted to be unremarkable. Soft tissues: High PD signal throughout, gluteus medius vasculature on the left and to lesser extent gluteus minimus. The tendons appear to maintain their attachment to the femur. Anterior right lower a bdomen soft tissue edema and subcutaneous tissues partially visualized. Other: Prostate gland is enlarged measuring up to 6.1 cm in transverse dimension. IMPRESSION: 1. Acute nondisplaced fracture of the left proximal femur intertrochanteric region. 2. Left buttock region edema throughout the predominantly the gluteus medius muscle compatible with likely underlying intramuscular hematoma. 3. Mild left hip osteoporosis and small joint effusion likely secondary to #1. 4. Prostatomegaly, correlate with serum PSA. [facility], , 06/29/2024 1:07 PM
--- NOTE | 2024-06-29 13:59 | XR ---
EXAMINATION TYPE: XR femur LT DATE OF EXAM: 06/29/2024 1:44 PM COMPARISON: CT and MRI CLINICAL INDICATION: Male, 78 years old with history of Preop planning, Left hip fracture; PHH, pain TECHNIQUE: XR femur LT examined in Frontal and lateral projections. FINDINGS/IMPRESSION: 1. Acute nondisplaced fracture of the left proximal femur intertrochanteric region as described on p rior CT and MRI. No significant displacement today's radiograph. Fracture lines are faintly visible. 2. Mild degeneration changes of the knee with osteophytic reaction joint space narrowing. [facility], , 06/29/2024 1:57 PM
[2024-06-29] MEDS: CYANOCOBALAMIN 500 MCG TAB PO SCH (14:25)
--- NOTE | 2024-06-29 16:04 | P.NPCON ---
History of Present Illness - Reason for Consult chronic renal failure - History of Present Illness Patient is an 78-year-old male with history of chronic kidney disease NKF stage IV with previous creatinine about 1.9 to 2 mg/dL as of January 2024. Patient is admitted to the hospital after a fall while walking outside. Patient apparently tripped and fell on the road. He landed on his hip and has sustained a fracture of the left hip. Patient is scheduled for surgery tomorrow. Serum creatinine was 1.6 yesterday and it is 1.7 today. Motrin noted on med list. Patient states he has been voiding. During imaging for the hip patient is noted to have a complex right renal cyst. Bilateral nonobstructive renal calculi noted as well. Past Medical History Past Medical History: Cancer, Dementia, Hypertension Additional Past Medical History / Comment(s): colon cancer 2012 History of Any Multi-Drug Resistant Organisms: None Reported Past Surgical History: Appendectomy, Bowel Resection, Hernia Repair Additional Past Surgical History / Comment(s): colon cancer surgery, Past Anesthesia/Blood Transfusion Reactions: No Reported Reaction Past Psychological History: No Psychological Hx Reported Smoking Status: Former smoker Past Alcohol Use History: None Reported Past Drug Use History: None Reported Medications and Allergies Home Medications Medication Instructions Recorded Confirmed Type Cyanocobalamin (Vitamin B-12) 2,000 mcg PO DAILY 10/17/20 06/28/24 History [Vitamin B-12] Donepezil [Aricept] 20 mg PO DAILY 06/28/24 06/28/24 History lisinopriL [Zestril] 10 mg PO BID 06/28/24 06/28/24 History Allergies Allergy/AdvReac Type Severity Reaction Status Date / Time Penicillins Allergy Rash/Hives Verified 10/21/20 09:51 Physical Exam Vitals: Vital Signs Temp Pulse Pulse Resp BP BP Pulse Ox 06/29/24 08:46 61 18 06/29/24 07:10 97.8 F 61 18 146/75 98 06/29/24 01:45 98.4 F 54 L 17 178/77 98 06/28/24 22:46 98.4 F 53 L 19 174/78 97 06/28/24 22:17 59 L 18 149/94 97 06/28/24 20:55 53 L 18 152/72 97 06/28/24 16:51 98.3 F 56 L 16 137/71 96 Intake and Output 06/29/24 06/29/24 06/29/24 06:59 14:59 22:59 Other: # Voids 2 Patient is awake, comfortable, no acute distress. Examination of the heart S1 and S2 Examination of the lungs decreased breath sounds at the bases Abdomen is soft nontender Examination of lower extremity shows no significant edema [employer] OPER[employer] exam grossly intact patient is moving all 4 extremities. Results - Lab Results Most recent lab results Calcium 9.8 mg/dL (8.7-10.3) 06/29/24 05:23 Magnesium 2.2 mg/dL (1.6-2.3) 06/28/24 18:06 06/29/24 05:23 06/29/24 05:23 Assessment and Plan Assessment: 1. Chronic kidney disease NKF stage IV secondary to nephrosclerosis and underlying nephrolithiasis. Baseline creatinine 1.7 to 1.9 mg/dL. 2. Left hip fracture status post fall, scheduled for surgery tomorrow 3. Complex right renal cyst, will need further evaluation down the road. 4. Nephrolithiasis with bilateral nonobstructive calculi 5. Hypertension with CKD stage IV maintained on ANGELA inhibitors Plan: Recommend to DC Motrin May continue with ANGELA inhibitors Patient will need urological evaluation down the road for complex right renal cyst. Repeat labs in a.m. Avoid nephrotoxic agents. Thank you for the consultation. We will continue to follow the patient with you during his hospitalization.
--- NOTE | 2024-06-29 16:18 | P.CONS ---
History of Present Illness - Reason for Consult Consult date: 06/29/24 Rt renal mass, admitted for left hip fracture - History of Present Illness Patient is an 78-year-old white female, with multiple medical problems. He came into the emergency room, due to a witnessed fall from tripping over the curb. He landed on his left hip. He was having significant pain in this area and was unable to bear weight appropriately. Initial evaluation with x-ray did not show any acute osseous abnormality. Left hip CT however showed evidence of acute nondisplaced, comminuted fracture of the left greater trochanter. There was no mention of any metastatic appearing lesions in this area. His routine chest x- ray raise a possibility of a mediastinal mass, due to which had a chest CT. that showed the area of concern to actually represent vascular structures. He was however found to have a 2.4 mm left lung nodule, which is nonspecific. Incidentally a lesion in the right mid kidney was seen, and the 2 cm range, with some enhancement, concerning for possible malignancy. Cyst with hemorrhagic ch kulwant was also in the differential. Consult was therefore placed for further evaluation and recommendations. Patient also had MRI of the hip done, which confirmed the fracture. Again there was no evidence of any metastatic appearing lesions in the bone, including at the site of the fracture. Decreased bone density was noted. The patient is a somewhat poor historian, due to known mild to moderate dementia. His is at the bedside who provided most of the history. According to her there was no prior history of malignancy although ER notes state a history of colon cancer. There has been no specific urinary complaints in terms of flank pain, or blood in the urine. No history of any B symptoms. Review of Systems Constitutional: Denies chills, Denies fever Eyes: denies blurred vision, denies pain Ears: deny: decreased hearing, ear discharge, earache, tinnitus Ears, nose, mouth and throat: Denies headache, Denies sore throat Cardiovascular: Reports decreased exercise tolerance Respiratory: Denies cough Gastrointestinal: Denies abdominal pain, Denies diarrhea, Denies nausea, Denies vomiting Genitourinary: Reports as per HPI Musculoskeletal: Reports as per HPI Musculoskeletal: left: hip pain, hip stiffness Integumentary: Denies pruritus, Denies rash Neurological: Reports memory loss Psychiatric: Reports memory loss Endocrine: Denies fatigue, Denies weight change Hematologic/Lymphatic: Reports as per HPI Past Medical History Past Medical History: Cancer, Dementia, Hypertension Additional Past Medical History / Comment(s): colon cancer 2012 History of Any Multi-Drug Resistant Organisms: None Reported Past Surgical History: Appendectomy, Bowel Resection, Hernia Repair Additional Past Surgical History / Comment(s): colon cancer surgery, Past Anesthesia/Blood Transfusion Reactions: No Reported Reaction Past Psychological History: No Psychological Hx Reported Smoking Status: Former smoker Past Alcohol Use History: None Reported Past Drug Use History: None Reported Medications and Allergies Home Medications Medication Instructions Recorded Confirmed Type Cyanocobalamin (Vitamin B-12) 2,000 mcg PO DAILY 10/17/20 06/28/24 History [Vitamin B-12] Donepezil [Aricept] 20 mg PO DAILY 06/28/24 06/28/24 History lisinopriL [Zestril] 10 mg PO BID 06/28/24 06/28/24 History Allergies Allergy/AdvReac Type Severity Reaction Status Date / Time Penicillins Allergy Rash/Hives Verified 10/21/20 09:51 Physical Exam Vitals: Vital Signs Temp Pulse Pulse Resp BP BP Pulse Ox 06/29/24 08:46 61 18 06/29/24 07:10 97.8 F 61 18 146/75 98 06/29/24 01:45 98.4 F 54 L 17 178/77 98 06/28/24 22:46 98.4 F 53 L 19 174/78 97 06/28/24 22:17 59 L 18 149/94 97 06/28/24 20:55 53 L 18 152/72 97 06/28/24 16:51 98.3 F 56 L 16 137/71 96 Intake and Output 06/29/24 06/29/24 06/29/24 06:59 14:59 22:59 Other: # Voids 2 - Constitutional General appearance: no acute distress - EENT Eyes: EOMI, PERRLA ENT: hearing grossly normal, normal oropharynx - Neck Neck: no lymphadenopathy Thyroid: bilateral: normal size - Respiratory Respiratory: bilateral: CTA - Cardiovascular Rhythm: regular Heart sounds: normal: S1, S2 - Gastrointestinal General gastrointestinal: normal bowel sounds, soft - Integumentary Integumentary: normal - Neurologic Neurologic: CNII-XII intact - Musculoskeletal Musculoskeletal: generalized weakness, left sided weakness (Left proximal lower extremity weakness due to hip fracture) - Psychiatric Oriented x 2. Difficulty with recall. Oriented to self and family members Results CBC & Chem 7: 06/29/24 05:23 06/29/24 05:23 Labs: Abnormal Lab Results - Last 24 Hours (Table) 06/28/24 06/28/24 06/28/24 Range/Units 18:06 18:06 19:30 RBC (4.40-5.60) X 10*6/uL Hgb (13.0-17.0) g/dL Hct (39.6-50.0) % MPV (9.5-12.2) FL Eosinophils # (0.04-0.35) X 10*3/uL APTT 21.2 L (22.0-30.0) sec Creatinine 1.65 H (0.66-1.25) mg/dL Est GFR (CKD-EPI) (>=60) BUN/Creatinine Ratio (12.00-20.00) Ratio Glucose 101 H (74-99) mg/dL Total Protein 6.0 L (6.3-8.2) g/dL Albumin 3.1 L (3.5-5.0) g/dL Albumin/Globulin Ratio (1.60-3.17) Ratio Urine Protein Trace H (Negative) Ur Leukocyte Esterase Moderate H (Negative) Urine WBC 25 H (0-5) /hpf Urine Mucus Few H (None) /hpf 06/29/24 06/29/24 Range/Units 05:23 05:23 RBC 4.16 L (4.40-5.60) X 10*6/uL Hgb 12.1 L (13.0-17.0) g/dL Hct 37.6 L (39.6-50.0) % MPV 9.1 L (9.5-12.2) FL Eosinophils # 0.02 L (0.04-0.35) X 10*3/uL APTT (22.0-30.0) sec Creatinine 1.7 H (0.66-1.25) mg/dL Est GFR (CKD-EPI) 40 L (>=60) BUN/Creatinine Ratio 9.59 L (12.00-20.00) Ratio Glucose (74-99) mg/dL Total Protein 5.8 L (6.3-8.2) g/dL Albumin 3.4 L (3.5-5.0) g/dL Albumin/Globulin Ratio 1.42 L (1.60-3.17) Ratio Urine Protein (Negative) Ur Leukocyte Esterase (Negative) Urine WBC (0-5) /hpf Urine Mucus (None) /hpf Comments: CT hip/hip and femur x-rays/MRI hip reports reviewed and summarized above Chest x-ray: report reviewed CT scan - chest: report reviewed Assessment and Plan Assessment: #1. Right renal mass #2. Subcentimeter lung nodule #3. Traumatic left hip fracture Plan: #1. Right renal mass-this is an incidental finding. Based on the CT characteristics, there is concern for malignancy. However benign cystic lesion with internal hemorrhage could also present with the same appearance. Based on the patient's workup so far, this does not appear to be related in any way to his presenting complaint. -For further workup MRI with renal protocol will be ordered. - Urology consult -If MRI raises the possibility of this lesion most likely being malignant, then he will need additional studies for metastatic workup. If negative, further management would be based on urology evaluation #2 lung nodulethis is subcentimeter, and nonspecific. No further workup at this time #3 left hip fracturethis appears to be traumatic, with no evidence of malignancy in the area of the fracture, on extensive imaging including CT scan and MRI. Therefore the patient should proceed with the planned surgery as scheduled. This plan should not be affected in any way, even if MRI indicates that the renal mass may be malignant, since there is no evidence of any relation so far, between the renal lesion, and the left hip fracture
[2024-06-29] MEDS: CYCLOBENZAPRINE 5 MG TAB PO PRN (17:01)
--- NOTE | 2024-06-29 18:25 | P.CONS ---
History of Present Illness - Reason for Consult Consult date: 06/29/24 Medical management Requesting physician: Antione Conde - Chief Complaint Left hip injury - History of Present Illness This is a pleasant 78-year-old patient, follows with Dr. John Quiñonez. Chronic medical conditions include dementia, essential hypertension, colon cancer 2013 with some surgical intervention. History is obtained by patient's and daughter at the bedside. Patient has significant dementia. At baseline the able to ambulate well. He was walking in took a misstep on a curb falling on his left hip. CT scan in the ER did show nondisplaced comminuted fracture involving the greater trochanter of the proximal left femur. Some pain present. No chest pain or shortness breath. Able to walk good distance. No cardiac history. Review of systems: Patient can answer simple questions mostly history is obtained by the and daughter at the bedside as above 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 No alcohol. Physical examination: VITAL SIGNS: 97.8, 61, 18, 146 x 35, 98% room air GENERAL: BMI 22.8, laying in bed awake comfortable. EYES: Pupils equal. Conjunctiva luis l. HEENT: External appearance of nose and ears normal, oral cavity grossly normal. NECK: JVD not raised; masses not palpable. HEART: First and second heart sounds are normal; no edema. LUNGS: Respiratory rate normal; clear to auscultation. ABDOMEN: Soft, nontender, liver spleen not palpable, no masses palpable. PSYCH: Able to answer simple questions l. MUSCULOSKELETAL:No Clubbing/cyanosis;muscles-grossly intact. Limited range of motion left hip. OA. NEUROLOGICAL: Cranial nerves grossly intact; no facial asymmetry, power and sensation grossly intact. LYMPHATICS: No lymph nodes palpable in the axilla and neck INVESTIGATIONS, reviewed in the clinical context: June 29, 2024: White count 8.9 hemoglobin 12.1 platelets 273 sodium 139 potassium 5 BUN 16.3 creatinine 1.7 UA: Protein trace Chest x-ray film personally reviewed by me-borderline cardiomegaly. Questionable apical mass right side EKG tracing personally reviewed by me-sinus bradycardia CT left hip: Acute comminuted nondisplaced fracture involving the greater trochanter. Colonic diverticulosis. Prostatomegaly. Urinary bladder calculi CT chest no acute process. Abnormal 2.2 cm right mid kidney cystic lesion with suggested enhancement. Bilateral renal calculi. Colonic diverticulosis. Abnormality positioning of the right subclavian artery right common carotid right brachiocephalic vein. Assessment plan: - Acute comminuted nondisplaced fracture involving the greater trochanter of the left hip. Secondary to trauma, fall from a misstep Patient being followed by orthopedic. Plan for surgery tomorrow. - Chronic colonic diverticulosis, asymptomatic - BPH Will check postvoid residual - Bilateral renal calculi. 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 Patient has no cardiac symptoms. No respiratory symptoms. Does walk a long distance. Medically stable to proceed with surgery with low to moderate risk because of age. - Osteopenia Os-[place] with calcium supplement - Urinary bladder calculi, asymptomatic - Full code - Patient's daughter Mer is the medical POA. Care was discussed with the , daughter, and the surgeon. Questions answered Thank you for the consult will follow Past Medical History Past Medical History: Cancer, Dementia, Hypertension Additional Past Medical History / Comment(s): colon cancer 2012 History of Any Multi-Drug Resistant Organisms: None Reported Past Surgical History: Appendectomy, Bowel Resection, Hernia Repair Additional Past Surgical History / Comment(s): colon cancer surgery, Past Anesthesia/Blood Transfusion Reactions: No Reported Reaction Past Psychological History: No Psychological Hx Reported Smoking Status: Former smoker Past Alcohol Use History: None Reported Past Drug Use History: None Reported Medications and Allergies Home Medications Medication Instructions Recorded Confirmed Type Cyanocobalamin (Vitamin B-12) 2,000 mcg PO DAILY 10/17/20 06/28/24 History [Vitamin B-12] Donepezil [Aricept] 20 mg PO DAILY 06/28/24 06/28/24 History lisinopriL [Zestril] 10 mg PO BID 06/28/24 06/28/24 History Allergies Allergy/AdvReac Type Severity Reaction Status Date / Time Penicillins Allergy Rash/Hives Verified 10/21/20 09:51 Physical Exam Vitals: Vital Signs Temp Pulse Pulse Resp BP BP Pulse Ox 06/29/24 07:10 97.8 F 61 18 146/75 98 06/29/24 01:45 98.4 F 54 L 17 178/77 98 06/28/24 22:46 98.4 F 53 L 19 174/78 97 06/28/24 22:17 59 L 18 149/94 97 06/28/24 20:55 53 L 18 152/72 97 06/28/24 16:51 98.3 F 56 L 16 137/71 96 Intake and Output 06/28/24 06/29/24 06/29/24 22:59 06:59 14:59 Other: # Voids 2 Weight 68.039 kg Results CBC & Chem 7: 06/29/24 05:23 06/29/24 05:23 Labs: Abnormal Lab Results - Last 24 Hours (Table) 06/28/24 06/28/24 06/28/24 Range/Units 18:06 18:06 19:30 RBC (4.40-5.60) X 10*6/uL Hgb (13.0-17.0) g/dL Hct (39.6-50.0) % MPV (9.5-12.2) FL Eosinophils # (0.04-0.35) X 10*3/uL APTT 21.2 L (22.0-30.0) sec Creatinine 1.65 H (0.66-1.25) mg/dL Est GFR (CKD-EPI) (>=60) BUN/Creatinine Ratio (12.00-20.00) Ratio Glucose 101 H (74-99) mg/dL Total Protein 6.0 L (6.3-8.2) g/dL Albumin 3.1 L (3.5-5.0) g/dL Albumin/Globulin Ratio (1.60-3.17) Ratio Urine Protein Trace H (Negative) Ur Leukocyte Esterase Moderate H (Negative) Urine WBC 25 H (0-5) /hpf Urine Mucus Few H (None) /hpf 06/29/24 06/29/24 Range/Units 05:23 05:23 RBC 4.16 L (4.40-5.60) X 10*6/uL Hgb 12.1 L (13.0-17.0) g/dL Hct 37.6 L (39.6-50.0) % MPV 9.1 L (9.5-12.2) FL Eosinophils # 0.02 L (0.04-0.35) X 10*3/uL APTT (22.0-30.0) sec Creatinine 1.7 H (0.66-1.25) mg/dL Est GFR (CKD-EPI) 40 L (>=60) BUN/Creatinine Ratio 9.59 L (12.00-20.00) Ratio Glucose (74-99) mg/dL Total Protein 5.8 L (6.3-8.2) g/dL Albumin 3.4 L (3.5-5.0) g/dL Albumin/Globulin Ratio 1.42 L (1.60-3.17) Ratio Urine Protein (Negative) Ur Leukocyte Esterase (Negative) Urine WBC (0-5) /hpf Urine Mucus (None) /hpf
[2024-06-29] MEDS: ENOXAPARIN 40 MG/0.4 ML SYRINGE SQ SCH (19:54)
[2024-06-30] MEDS: CALCIUM CARB-VIT D 500 MG-5 MCG TAB PO SCH (06:48)
[2024-06-30] MEDS: IV FLUID CONTINUATION 1,000 ML IV ONE (07:40)
--- NOTE | 2024-06-30 07:52 | P.PN ---
Progress Note - Text Progress Note Date: 06/30/24 Patient seen and examined this morning, overall he is more drowsy this morning secondary to recent pain medication administration. Still noting considerable pain to the left hip with pain with any attempted motion. On exam he is tender to palpation over the greater trochanter of the left hip, pain with any attempted motion Intact light touch sensation throughout the left leg Able to move his ankle and toes Brisk capillary refill and palpable DP pulse to the left foot After further review of the risks and benefits of surgery family wishes to proceed today with operative fixation of the left hip with intramedullary fixation. N.p.o. Nonweightbearing Multimodal pain regimen Proceed with OR this morning
[2024-06-30] MEDS ORDERED: fentaNYL (PF) 50 MCG/ML 2 ML AMP ONE (08:00)
[2024-06-30] MEDS ORDERED: KETAMINE HCL IN 0.9 % NACL 50 MG/5 ML SYRINGE ONE (08:00)
[2024-06-30] MEDS: SODIUM CHLORIDE 0.9% 50 ML with ceFAZolin 2,000 MG IV ONE (08:36)
[2024-06-30] MEDS ORDERED: HYDROmorphone 0.5 MG/0.5 ML SYRINGE IVP PRN ×2 (09:51)
[2024-06-30] MEDS ORDERED: NALOXONE 0.4 MG/ML 1 ML VIAL IV PRN (09:51)
--- NOTE | 2024-06-30 09:57 | FL ---
Fluoroscopy INDICATION: Pain FINDINGS: Fluoroscopy time: 1 minute 11 seconds. Total dose area product (DAP) in uGy*m?, mGy*cm? (or similar): 10.381 Images obtained: 5. Images document left hip open reduction internal fixation. IMPRESSION: 1. Documentation of fluoroscopy. [facility], , 06/30/2024 9:55 AM
--- NOTE | 2024-06-30 10:05 | P.OP ---
Date of Procedure: 06/30/24 Preoperative Diagnosis: Left hip greater trochanteric fracture with extension into the intertrochanteric region of greater than 50% Postoperative Diagnosis: Same Procedure(s) Performed: Operative fixation of the left hip with cephalomedullary implant Implants: Synthes TFN a short nail 12 mm 95 mm lag screw 34 mm distal screw Anesthesia: spinal Surgeon: Antione Conde Estimated Blood Loss (ml): 100 Pathology: none sent Condition: stable Disposition: PACU Indications for Procedure: Greater trochanteric fracture of the left hip with extension into the intertrochanteric region of greater than 50% in a patient with advanced dementia who is unable to comply with weightbearing restrictions who is also a community ambulator at baseline Operative Findings: Normally displaced fracture of the greater trochanter of the left femur no further evidence of fracture displacement however there was preoperatively identified fracture extension on MRI of the left hip. Description of Procedure: After appropriate consent was obtained detailing the benefits and risks of surgery. The risks of surgery include risks of anesthesia which was discussed in greater detail with the anesthesia team prior to surgery, scarring, risk of swelling and possible permanent swelling of the affected extremity, superficial vs deep infections, damage to surrounding structures including muscles, nerve, tendons, blood vessels, hardware failure, fracture mal or non union, need for additional future surgery, blood clots, stroke, even are possible with surgery were discussed with the patient and family and they wish to proceed with surgery. detailed descriptions of these risks are included in the consent document that patient was provided a copy with for review prior to his procedure. Benefits include stabilizing the fracture and helping with baseline pain, providing the patient with the opportunity to weight bear on the extremity after surgery and minimizing the risk of the patient being noncompliant with weight bearing restrictions due to his baseline dementia with nonoperative treatment. The patient was brought to the operating room, and after induction of spinal anesthesia the patient was placed supine on the [place] table. The left hip fracture was evaluated with imaging and there was found to be no interval displacement of his fracture necessitating further reduction. The left hip was then prepped and draped in a normal fashion. A standard timeout was performed again confirming the appropriate patient and operative site. the appropriate starting point on the greater trochanter was initially identified with fluoroscopy, the incision just proximal to the greater trochanter in line with the femur was marked out, the incision was carried down through the skin and through the overlying fascia in order to palpate the greater trochanter. a 3.2 mm guidepin was utilized to get the initial starting point for the opening reamer the opening reamer was then placed over the guidepin to open up the pro ximal aspect of the femur, [13.5] mm reamer was then placed over a guidewire by hand which was exchanged for the initial guidepin in order to adequately open the distal aspect of the canal to allow for ease of nail insertion for the Synthes short [12]mm femoral nail, this was then gently inserted into a proper depth for the femoral neck lag screw, the trocar sleeve for the lag screw was then inserted the incision was carried down through the skin and overlying fascia and the trocar was placed on the bone. an additional pin was placed through the aiming jig in order to properly estimate the trajectory of the head screw on the lateral image, patient had notable anterior bowing to the femoral neck which necessitated a slightly off-center position of the lag screw in order to properly position him within the femoral neck and avoid placement too anterior or posterior within the femoral head/neck. Position was confirmed on AP and lateral films the guidepin for the head screw was then placed in appropriate position again confirmed with imaging, screw was then predrilled drilled and an appropriate sized screw length selected and placed. The lag screw was then set in place with allowance for further compression. attention was then placed to the distal interlocking screw the trocar was inserted and appropriate position confirmed with imaging the cortex was drilled and an appropriate size screw was placed and imaging confirmed once again on fluoroscopy, guide was removed and final images demonstrated appropriate alignment of the bone and position of the implants, the wounds were copiously irrigated with normal saline and the wounds closed with Vicryl sutures and strata fix barbed suture, skin glue was then applied, sterile dressings were then applied, patient tolerated the procedure well and was transported to the PACU in stable condition.
[2024-06-30] MEDS: HYDROmorphone 0.5 MG/0.5 ML SYRINGE IVP PRN (11:26)
[2024-06-30] MEDS: HYDROmorphone 0.5 MG/0.5 ML SYRINGE IVP STA (11:57)
--- NOTE | 2024-06-30 12:13 | P.PN ---
Subjective Patient is seen in follow-up for chronic kidney disease. Renal function near baseline. Underwent left hip surgical repair this morning. Currently undergoing EKG. Family present at bedside. Vital signs are stable. General: No acute distress. HEENT: Head exam is unremarkable. LUNGS: No audible rhonchi or wheezes. HEART: Rate and Rhythm are regular. ABDOMEN: Nontender. EXTREMITITES: No edema. Objective - Vital Signs Vital signs: Vital Signs Temp 97.0 F L 06/30/24 09:48 Pulse 65 06/30/24 10:33 Resp 16 06/30/24 10:33 BP 178/83 06/30/24 10:33 Pulse Ox 95 06/30/24 10:33 FiO2 Intake & Output 06/29/24 06/30/24 06/30/24 18:59 06:59 18:59 Intake Total 750 Output Total 350 325 Balance -350 425 Intake: IV 750 Output: Urine 350 225 Estimated Blood Loss 100 Other: Voiding Method Urinal # Voids 2 - Labs CBC & Chem 7: 06/29/24 05:23 06/29/24 05:23 Assessment and Plan Plan: Assessment: 1. Chronic kidney disease stage IV secondary to nephrosclerosis and underlying nephrolithiasis. GFR at baseline. 2. Status post fall with left hip fracture status post surgical repair June 30, 2024. 3. Hypertension with chronic kidney disease. Worsened with pain. 4. Bilateral nonobstructive nephrolithiasis. 5. Complex right renal cyst. Oncology following Plan: Maintain gentle IV hydration. Avoid nephrotoxins. Check bladder scan to rule out urinary retention. Continue to monitor renal function and urine output.
[2024-06-30] MEDS: SODIUM CHLORIDE 0.9% 1,000 ML IV SCH (15:21)
--- NOTE | 2024-06-30 18:38 | P.PN ---
Progress Note - Text Progress Note Date: 06/30/24 - Chief Complaint Left hip injury - History of Present Illness This is a pleasant 78-year-old patient, follows with Dr. John Quiñonez. Chronic medical conditions include dementia, essential hypertension, colon cancer 2013 with some surgical intervention. History is obtained by patient's and daughter at the bedside. Patient has significant dementia. At baseline the able to ambulate well. He was walking in took a misstep on a curb falling on his left hip. CT scan in the ER did show nondisplaced comminuted fracture involving the greater trochanter of the proximal left femur. Some pain present. No chest pain or shortness breath. Able to walk good distance. No cardiac history. June 30: Patient underwent surgical repair of left hip this morning. Postprocedure received pain medications. Rather lethargic. Patient had been in pain. Reflecting high blood pressure. Active Medications Acetaminophen (Acetaminophen Tab 325 Mg Tab) 650 mg PO Q6HR PRN PRN Reason: Mild Pain or Fever > 100.5 Hydrocodone Bitart/Acetaminophen (Hydrocodone/Apap 5-325mg 1 Each Tab) 1 each PO Q4HR PRN PRN Reason: Pain Last Admin: 06/30/24 06:53 Dose: 1 each Aspirin (Aspirin 81 Mg) 81 mg PO BID [facility] Calcium Carbonate (Calcium Carb-Vit D 500 Mg-5 Mcg Tab) 1 each PO BID-W/MEALS [facility] Last Admin: 06/30/24 17:49 Dose: Not Given Cyanocobalamin (Cyanocobalamin 500 Mcg Tab) 2,000 mcg PO DAILY [facility] Last Admin: 06/30/24 12:10 Dose: Not Given Cyclobenzaprine HCl (Cyclobenzaprine 5 Mg Tab) 5 mg PO TID PRN PRN Reason: Muscle Spasm Last Admin: 06/30/24 03:34 Dose: 5 mg Donepezil HCl (Donepezil 10 Mg Tab) 20 mg PO DAILY [facility] Last Admin: 06/30/24 11:26 Dose: 20 mg Hydromorphone HCl (Hydromorphone 0.5 Mg/0.5 Ml Syringe) 0.5 mg IVP Q3HR PRN PRN Reason: Pain Scale 7 to 10 Last Admin: 06/30/24 15:20 Dose: 0.5 mg Hydromorphone HCl (Hydromorphone 0.5 Mg/0.5 Ml Syringe) 0.125 mg IVP Q3HR PRN PRN Reason: Pain Scale 1 to 3 Hydromorphone HCl (Hydromorphone 0.5 Mg/0.5 Ml Syringe) 0.25 mg IVP Q3HR PRN PRN Reason: Pain Scale 4 to 6 Sodium Chloride (Saline 0.9%) 1,000 mls @ 65 mls/hr IV .[id number] [facility] Last Admin: 06/30/24 15:21 Dose: 65 mls/hr Cefazolin Sodium 2 gm/ Sodium (Chloride) 50 mls @ 100 mls/hr IVPB Q8HR [facility]; Protocol Stop: 07/01/24 00:29 Lisinopril (Lisinopril 10 Mg Tab) 10 mg PO BID [facility] Last Admin: 06/30/24 11:25 Dose: 10 mg Magnesium Hydroxide (Magnesium Hydroxide 2,400 Mg/30 Ml Cup) 2,400 mg PO DAILY PRN PRN Reason: Constipation Miscellaneous Information (Rx Info: Iv Contrast Was Given 1 Each Misc) 1 each MISCELLANE DAILY PRN PRN Reason: Per Protocol Stop: 06/30/24 18:54 Naloxone HCl (Naloxone 0.4 Mg/Ml 1 Ml Vial) 0.2 mg IV Q2M PRN PRN Reason: Opioid Reversal Naloxone HCl (Naloxone 0.4 Mg/Ml 1 Ml Vial) 0.2 mg IV Q2M PRN PRN Reason: Opioid Reversal Ondansetron HCl (Ondansetron 4 Mg/2 Ml Vial) 4 mg IVP Q8HR PRN PRN Reason: Nausea And Vomiting Pantoprazole Sodium (Pantoprazole 40 Mg Tablet) 40 mg PO DAILY [facility] Last Admin: 06/30/24 11:26 Dose: 40 mg Senna/Docusate Sodium (Sennosides-Docusate Sodium 1 Each Tab) 2 each PO HS [facility] 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 No alcohol. Physical examination: VITAL SIGNS: 79, 16, 177 x 91, 96% GENERAL: BMI 22.8, laying in bed lethargic EYES: Pupils equal. Conjunctiva luis l. HEENT: External appearance of nose and ears normal, oral cavity grossly normal. NECK: JVD not raised; masses not palpable. HEART: First and second heart sounds are normal; no edema. LUNGS: Respiratory rate normal; clear to auscultation. ABDOMEN: Soft, nontender, liver spleen not palpable, no masses palpable. PSYCH: Lethargic MUSCULOSKELETAL:No Clubbing/cyanosis;muscles-grossly intact. OptiForm dressing over incision site INVESTIGATIONS, reviewed in the clinical context: June 29, 2024: White count 8.9 hemoglobin 12.1 platelets 273 sodium 139 potassium 5 BUN 16.3 creatinine 1.7 UA: Protein trace Chest x-ray film personally reviewed by me-borderline cardiomegaly. Questionable apical mass right side EKG tracing personally reviewed by me-sinus bradycardia CT left hip: Acute comminuted nondisplaced fracture involving the greater trocha nter. Colonic diverticulosis. Prostatomegaly. Urinary bladder calculi CT chest no acute process. Abnormal 2.2 cm right mid kidney cystic lesion with suggested enhancement. Bilateral renal calculi. Colonic diverticulosis. Abnormality positioning of the right subclavian artery right common carotid right brachiocephalic vein. Assessment plan: - Acute comminuted nondisplaced fracture involving the greater trochanter of the left hip. Secondary to trauma, fall from a misstep June 30: Operative fixation of the left hip with cephalomedullary implant, by Dr. Conde - Chronic colonic diverticulosis, asymptomatic - BPH - Bilateral renal calculi. 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 Patient has no cardiac symptoms. No respiratory symptoms. Does walk a long distance. Medically stable to proceed with surgery with low to moderate risk because of age. - Osteopenia Os-Leon with calcium supplement - Urinary bladder calculi, asymptomatic - Full code - Patient's daughter Mer is the medical POA. Continue postop care. Pain management for better blood pressure control. Thank you for the consult will follow Past Medical History Past Medical History: Cancer, Dementia, Hypertension Additional Past Medical History / Comment(s): colon cancer 2012 History of Any Multi-Drug Resistant Organisms: None Reported Past Surgical History: Appendectomy, Bowel Resection, Hernia Repair Additional Past Surgical History / Comment(s): colon cancer surgery, Past Anesthesia/Blood Transfusion Reactions: No Reported Reaction Past Psychological History: No Psychological Hx Reported Smoking Status: Former smoker Past Alcohol Use History: None Reported Past Drug Use History: None Reported
[2024-06-30] MEDS: ASPIRIN 81 MG PO SCH (22:24)
[2024-06-30] MEDS: SENNOSIDES-DOCUSATE SODIUM 1 EACH TAB PO SCH (22:26)
[2024-07-01 04:03] LABS: Basophils # (A) 0.1 k/uL (0-0.2); Basophils % (A) 1 %; Eosinophils % (A) 0 %; HCT 40.5 % (39.0-53.0); HGB 12.5 gm/dL (13.0-17.5); Lymphocytes # (A) 0.9 k/uL (1.0-4.8); Lymphocytes % (A) 10 %; MCH 27.9 pg (25.0-35.0); MCHC 30.9 g/dL (31.0-37.0); MCV 90.2 fL (80.0-100.0); Mean Platelet Volume 7.4; Monocytes # (A) 0.7 k/uL (0-1.0); Monocytes % (A) 8 %; Neutrophils # (A) 6.8 k/uL (1.3-7.7); Neutrophils % (A) 80 %; Platelet Count 261 k/uL (150-450); RBC 4.49 m/uL (4.30-5.90); WBC 8.5 k/uL (3.8-10.6)
[2024-07-01 04:19] LABS: African American GFR (CKD) 53 (>60 ml/min/1.73 sqM); Anion Gap 6 mmol/L; Blood Urea Nitrogen 21 mg/dL (9-20); Calcium 10.2 mg/dL (8.4-10.2); Carbon Dioxide 28 mmol/L (22-30); Chloride 102 mmol/L (98-107); Glucose 83 mg/dL (74-99); Non-African American GFR(CKD) 46 (>60 ml/min/1.73 sqM); Potassium 4.5 mmol/L (3.5-5.1); Sodium 136 mmol/L (137-145)
--- NOTE | 2024-07-01 10:17 | P.PN ---
Subjective Progress Note Date: 07/01/24 This is an 78-year-old male who is status post placement of cephalomedullary nail for left greater trochanteric fracture with extension into the intertrochanteric region. This is postoperative day #1 and patient is seen and evaluated at bedside today. Patient is a poor historian due to history of dementia, but family present at bedside today states that he has been doing well. Per nursing, he has been up in a chair and required a 2-person assist for transfers. Objective - Vital Signs Vital signs: Vital Signs Temp 99.0 F 07/01/24 07:15 Pulse 85 07/01/24 07:15 Resp 17 07/01/24 07:15 BP 160/85 07/01/24 07:15 Pulse Ox 95 07/01/24 07:15 FiO2 Intake & Output 06/30/24 07/01/24 07/01/24 18:59 06:59 18:59 Intake Total 750 1080 Output Total 825 375 100 Balance -75 705 -100 Intake: IV 750 Oral 1080 Output: Urine 725 275 100 Straight 500 Post Void Residual 100 Estimated Blood Loss 100 Other: Voiding Method Urinal # Voids 2 - Exam Vital signs are stable. Patient is in no acute distress and is alert and oriented 3. Calf is soft and nontender to palpation. Dressing is clean, dry, and intact. Patient has full foot and ankle motion without pain or difficulty. Sensation intact. Neurovascular status and circulatory status are intact. - Labs CBC & Chem 7: 07/01/24 03:00 07/01/24 03:00 Labs: Abnormal Lab Results - Last 24 Hours (Table) 07/01/24 07/01/24 Range/Units 03:00 03:00 Hgb 12.5 L (13.0-17.5) gm/dL MCHC 30.9 L (31.0-37.0) g/dL Lymphocytes # 0.9 L (1.0-4.8) k/uL Sodium 136 L (137-145) mmol/L BUN 21 H (9-20) mg/dL Creatinine 1.43 H (0.66-1.25) mg/dL Assessment and Plan (1) Fall Current Visit: Yes Status: Acute Code(s): W19.XXXA - UNSPECIFIED FALL, INITIAL ENCOUNTER SNOMED Code(s): 8696300 (2) Greater trochanter fracture Current Visit: Yes Status: Acute Code(s): S72.113A - DISP FX OF GREATER TROCHANTER OF UNSP FEMUR, INIT SNOMED Code(s): 089645772 (3) Left hip pain Current Visit: Yes Status: Acute Code(s): M25.552 - PAIN IN LEFT HIP SNOMED Code(s): 63659899 Plan: Continue routine postop care and pain control. Continue anticoagulation with aspirin. Weightbearing as tolerated with a walker. Leave dressings in place until follow up visit Appreciate input from internal medicine. [facility] in the next 24-48 hours. Patient seen and independently examined today, overall patient's pain seems to be better controlled compared to prior exams. Patient and family deny any issues with chest pain or shortness of breath. He has been able to ambulate however as noted above has required assistance with mobilization. On exam his dressings are clean and intact, there is no calf tenderness or swelling to the left leg. He has intact light touch sensation throughout the left leg he is able to actively move the hip, knee, ankle, and toes. Patient has minimal discomfort with gentle passive hip motion. Palpable DP pulse and brisk capillary refill the left foot. Patient is weightbearing as tolerated to the left leg PT and OT for ambulation and gait training as well as assessments on proper posthospital discharge planning Continue aspirin 81 mg twice daily for DVT prophylaxis Multimodal pain control regimen Unless dressings become saturated they should remain in place until his follow- up visit Appreciate medicine input for ongoing in-hospital management
--- NOTE | 2024-07-01 11:25 | P.PN ---
Subjective Patient is seen in follow-up for chronic kidney disease. Renal function near baseline. Underwent left hip surgical repair June 30, 2024. Sitting up in chair. Vital signs are stable. General: No acute distress. HEENT: Head exam is unremarkable. LUNGS: No audible rhonchi or wheezes. HEART: Rate and Rhythm are regular. ABDOMEN: Nontender. EXTREMITITES: No edema. Objective - Vital Signs Vital signs: Vital Signs Temp 99.0 F 07/01/24 07:15 Pulse 85 07/01/24 07:15 Resp 17 07/01/24 07:15 BP 160/85 07/01/24 07:15 Pulse Ox 95 07/01/24 07:15 FiO2 Intake & Output 06/30/24 07/01/24 07/01/24 18:59 06:59 18:59 Intake Total 750 1080 Output Total 825 375 100 Balance -75 705 -100 Intake: IV 750 Oral 1080 Output: Urine 725 275 100 Straight 500 Post Void Residual 100 Estimated Blood Loss 100 Other: Voiding Method Urinal Bedside Commode Urinal # Voids 2 - Labs CBC & Chem 7: 07/01/24 03:00 07/01/24 03:00 Labs: Abnormal Lab Results - Last 24 Hours (Table) 07/01/24 07/01/24 Range/Units 03:00 03:00 Hgb 12.5 L (13.0-17.5) gm/dL MCHC 30.9 L (31.0-37.0) g/dL Lymphocytes # 0.9 L (1.0-4.8) k/uL Sodium 136 L (137-145) mmol/L BUN 21 H (9-20) mg/dL Creatinine 1.43 H (0.66-1.25) mg/dL Assessment and Plan Plan: Assessment: 1. Chronic kidney disease stage IV secondary to nephrosclerosis and underlying nephrolithiasis. GFR at baseline. 2. Status post fall with left hip fracture status post surgical repair June 30, 2024. 3. Hypertension with chronic kidney disease. 4. Bilateral nonobstructive nephrolithiasis. 5. Complex right renal cyst. Oncology following Plan: Maintain gentle IV hydration. Avoid nephrotoxins. Add as needed hydralazine. Pain control. Continue to monitor renal function and urine output.
--- NOTE | 2024-07-01 17:27 | P.PN ---
Progress Note - Text Progress Note Date: 07/01/24 - Chief Complaint Left hip injury - History of Present Illness This is a pleasant 78-year-old patient, follows with Dr. Jonh Quiñonez. Chronic medical conditions include dementia, essential hypertension, colon cancer 2013 with some surgical intervention. History is obtained by patient's and daughter at the bedside. Patient has significant dementia. At baseline the able to ambulate well. He was walking in took a misstep on a curb falling on his left hip. CT scan in the ER did show nondisplaced comminuted fracture involving the greater trochanter of the proximal left femur. Some pain present. No chest pain or shortness breath. Able to walk good distance. No cardiac history. June 30: Patient underwent surgical repair of left hip this morning. Postprocedure received pain medications. Rather lethargic. Patient had been in pain. Reflecting high blood pressure. July 01: Patient doing much better today. Awake. Resting in bed. and family at the bedside. Tolerated diet. Blood pressure bit on the higher side. Adjust antihypertensives. Eating well. DC IV fluids Active Medications Acetaminophen (Acetaminophen Tab 325 Mg Tab) 650 mg PO Q6HR PRN PRN Reason: Mild Pain or Fever > 100.5 Hydrocodone Bitart/Acetaminophen (Hydrocodone/Apap 5-325mg 1 Each Tab) 1 each PO Q4HR PRN PRN Reason: Pain Last Admin: 07/01/24 08:27 Dose: 1 each Aspirin (Aspirin 81 Mg) 81 mg PO BID [facility] Last Admin: 07/01/24 08:27 Dose: 81 mg Calcium Carbonate (Calcium Carb-Vit D 500 Mg-5 Mcg Tab) 1 each PO BID-W/MEALS [facility] Last Admin: 07/01/24 06:28 Dose: 1 each Cyanocobalamin (Cyanocobalamin 500 Mcg Tab) 2,000 mcg PO DAILY [facility] Last Admin: 07/01/24 08:27 Dose: 2,000 mcg Cyclobenzaprine HCl (Cyclobenzaprine 5 Mg Tab) 5 mg PO TID PRN PRN Reason: Muscle Spasm Last Admin: 06/30/24 03:34 Dose: 5 mg Donepezil HCl (Donepezil 10 Mg Tab) 20 mg PO DAILY [facility] Last Admin: 07/01/24 08:27 Dose: 20 mg Hydralazine HCl (Hydralazine Hcl 20 Mg/Ml 1 Ml Vial) 10 mg IVP Q6HR PRN PRN Reason: Blood Pressure - High Hydromorphone HCl (Hydromorphone 0.5 Mg/0.5 Ml Syringe) 0.5 mg IVP Q3HR PRN PRN Reason: Pain Scale 7 to 10 Last Admin: 07/01/24 15:19 Dose: 0.5 mg Hydromorphone HCl (Hydromorphone 0.5 Mg/0.5 Ml Syringe) 0.125 mg IVP Q3HR PRN PRN Reason: Pain Scale 1 to 3 Hydromorphone HCl (Hydromorphone 0.5 Mg/0.5 Ml Syringe) 0.25 mg IVP Q3HR PRN PRN Reason: Pain Scale 4 to 6 Sodium Chloride (Saline 0.9%) 1,000 mls @ 65 mls/hr IV .[id number] [facility] Last Admin: 07/01/24 02:34 Dose: Not Given Lisinopril (Lisinopril 10 Mg Tab) 10 mg PO BID [facility] Last Admin: 07/01/24 08:27 Dose: 10 mg Magnesium Hydroxide (Magnesium Hydroxide 2,400 Mg/30 Ml Cup) 2,400 mg PO DAILY PRN PRN Reason: Constipation Naloxone HCl (Naloxone 0.4 Mg/Ml 1 Ml Vial) 0.2 mg IV Q2M PRN PRN Reason: Opioid Reversal Naloxone HCl (Naloxone 0.4 Mg/Ml 1 Ml Vial) 0.2 mg IV Q2M PRN PRN Reason: Opioid Reversal Ondansetron HCl (Ondansetron 4 Mg/2 Ml Vial) 4 mg IVP Q8HR PRN PRN Reason: Nausea And Vomiting Pantoprazole Sodium (Pantoprazole 40 Mg Tablet) 40 mg PO DAILY [facility] Last Admin: 07/01/24 08:27 Dose: 40 mg Senna/Docusate Sodium (Sennosides-Docusate Sodium 1 Each Tab) 2 each PO HS [facility] Last Admin: 06/30/24 22:26 Dose: 2 each 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 No alcohol. Physical examination: VITAL SIGNS: 98.5, 98, 18, 150/77, 98% room GENERAL: BMI 22.8, laying in bed awake, comfortable EYES: Pupils equal. Conjunctiva luis l. HEENT: External appearance of nose and ears normal, oral cavity grossly normal. NECK: JVD not raised; masses not palpable. HEART: First and second heart sounds are normal; no edema. LUNGS: Respiratory rate normal; clear to auscultation. ABDOMEN: Soft, nontender, liver spleen not palpable, no masses palpable. PSYCH: Answering simple questions MUSCULOSKELETAL:No Clubbing/cyanosis;muscles-grossly intact. OptiForm dressing over incision site INVESTIGATIONS, reviewed in the clinical context: July 01: White count 8.5 hemoglobin 12.5 platelets 261 potassium 4.5 BUN 21 creatinine 1.43 June 29, 2024: White count 8.9 hemoglobin 12.1 platelets 273 sodium 139 potassium 5 BUN 16.3 creatinine 1.7 UA: Protein trace Chest x-ray film personally reviewed by me-borderline cardiomegaly. Questionable apical mass right side EKG tracing personally reviewed by me-sinus bradycardia CT left hip: Acute comminuted nondisplaced fracture involving the greater trochanter. Colonic diverticulosis. Prostatomegaly. Urinary bladder calculi CT chest no acute process. Abnormal 2.2 cm right mid kidney cystic lesion with suggested enhancement. Bilateral renal calculi. Colonic diverticulosis. Abnormality positioning of the right subclavian artery right common carotid right brachiocephalic vein. Assessment plan: - Acute comminuted nondisplaced fracture involving the greater trochanter of the left hip. Secondary to trauma, fall from a misstep June 30: Operative fixation of the left hip with cephalomedullary implant, by Dr. Conde - Chronic colonic diverticulosis, asymptomatic - BPH - Bilateral renal calculi. Asymptomatic - Severe cognitive impairment from late onset Alzheimer's dementia Aricept - Essential hypertension, uncontrolled DC lisinopril. Cozaar 50 mg twice daily - DVT prophylaxis Subcu Lovenox 40 mg daily - Chronic kidney disease stage III likely nephrosclerosis - Perioperative medical restratification. Patient has no cardiac symptoms. No respiratory symptoms. Does walk a long distance. Medically stable to proceed with surgery with low to moderate risk because of age. - Osteopenia Os-Leon with calcium supplement - Urinary bladder calculi, asymptomatic - Full code - Patient's daughter Mer is the medical POA. DC IV fluids. Change blood pressure medications to Cozaar 50 mg twice daily. Doing much better. Discussed with the at the bedside. Thank you for the consult will follow Past Medical History Past Medical History: Cancer, Dementia, Hypertension Additional Past Medical History / Comment(s): colon cancer 2012 History of Any Multi-Drug Resistant Organisms: None Reported Past Surgical History: Appendectomy, Bowel Resection, Hernia Repair Additional Past Surgical History / Comment(s): colon cancer surgery, Past Anesthesia/Blood Transfusion Reactions: No Reported Reaction Past Psychological History: No Psychological Hx Reported Smoking Status: Former smoker Past Alcohol Use History: None Reported Past Drug Use History: None Reported
[2024-07-01] MEDS: LOSARTAN 50 MG TAB PO SCH (21:08)
[2024-07-02] MEDS: hydrALAZINE HCL 20 MG/ML 1 ML VIAL IVP PRN (01:37)
[2024-07-02] MEDS: MAGNESIUM HYDROXIDE 2,400 MG/30 ML CUP PO PRN (10:18)
--- NOTE | 2024-07-02 10:45 | P.PN ---
Subjective Patient is seen in follow-up for chronic kidney disease. Renal function near baseline. Creatinine 1.43 yesterday. Underwent left hip surgical repair June 30, 2024. Resting in bed. Vital signs are stable. General: No acute distress. HEENT: Head exam is unremarkable. LUNGS: No audible rhonchi or wheezes. HEART: Rate and Rhythm are regular. ABDOMEN: Nontender. EXTREMITITES: No edema. Objective - Vital Signs Vital signs: Vital Signs Temp 99.6 F 07/02/24 06:55 Pulse 108 H 07/02/24 06:55 Resp 16 07/02/24 06:55 BP 156/83 07/02/24 06:55 Pulse Ox 98 07/02/24 06:55 FiO2 Intake & Output 07/01/24 07/02/24 07/02/24 18:59 06:59 18:59 Intake Total 400 Output Total 550 Balance -150 Intake: Oral 400 Output: Urine 550 Other: Voiding Method Bedside Commode Bedside Commode Urinal Urinal - Labs CBC & Chem 7: 07/01/24 03:00 07/01/24 03:00 Assessment and Plan Plan: Assessment: 1. Chronic kidney disease stage IV secondary to nephrosclerosis and underlying nephrolithiasis. GFR at baseline. 2. Status post fall with left hip fracture status post surgical repair June 30, 2024. 3. Hypertension with chronic kidney disease. 4. Bilateral nonobstructive nephrolithiasis. 5. Complex right renal cyst. Oncology following Plan: Off IV fluids. Encouraged oral intake. Avoid nephrotoxins. Losartan resumed. Maintain as needed hydralazine Continue to monitor renal function and urine output.
--- NOTE | 2024-07-02 11:11 | P.PN ---
Subjective Progress Note Date: 07/02/24 This is an 78-year-old male who is status post placement of cephalomedullary nail for left greater trochanteric fracture with extension into the intertrochanteric region. This is postoperative day #2 and patient is seen and evaluated at bedside today. Patient is a poor historian due to history of dementia, but family present at bedside today states that he has been resting this morning after a restless night. Family states that he hasn't worked with physical therapy yet today. Objective - Vital Signs Vital signs: Vital Signs Temp 99.6 F 07/02/24 06:55 Pulse 108 H 07/02/24 06:55 Resp 16 07/02/24 06:55 BP 156/83 07/02/24 06:55 Pulse Ox 98 07/02/24 06:55 FiO2 Intake & Output 07/01/24 07/02/24 07/02/24 18:59 06:59 18:59 Intake Total 400 Output Total 550 250 Balance -150 -250 Intake: Oral 400 Output: Urine 550 250 Other: Voiding Method Bedside Commode Bedside Commode Urinal Urinal - Exam Vital signs are stable. Patient is in no acute distress and is alert and oriented 3. Calf is soft and nontender to palpation. Dressings are clean, dry, and intact. Patient has full foot and ankle motion without pain or difficulty. Sensation intact. Neurovascular status and circulatory status are intact. - Labs CBC & Chem 7: 07/01/24 03:00 07/01/24 03:00 Assessment and Plan (1) Fall Current Visit: Yes Status: Acute Code(s): W19.XXXA - UNSPECIFIED FALL, INITIAL ENCOUNTER SNOMED Code(s): 0733026 (2) Greater trochanter fracture Current Visit: Yes Status: Acute Code(s): S72.113A - DISP FX OF GREATER TROCHANTER OF UNSP FEMUR, INIT SNOMED Code(s): 890581779 (3) Left hip pain Current Visit: Yes Status: Acute Code(s): M25.552 - PAIN IN LEFT HIP SNOMED Code(s): 98651003 Plan: Continue routine postop care and pain control. Continue anticoagulation with aspirin. Weightbearing as tolerated with a walker. Leave dressings in place until follow up visit . Appreciate input from internal medicine. Anticipate discharge to [facility] in the next 24-48 hours. Patient was seen and independently examined today, patient's 2 daughters were present at the time of evaluation. I agree with the above interval history and exam. Patient overall had a restless night secondary to issues with frequent urination as well as difficulty with bowel movement. Overall pain seems to be adequately controlled, family does note that patient will get very drowsy with his current pain medications, due to his seemingly well-controlled pain we will decrease his medications and remove the muscle relaxer in an effort to prevent some of this drowsiness. On exam his dressings are clean dry and intact, patient will tolerate gentle motion of the hip without issues he will move his ankle and toes on command and reacts appropriately to light touch throughout the left leg. There is no calf tenderness. Patient is currently awaiting further workup of the previously identified incidental kidney mass per the medicine and nephrology teams. Pending any further workup from this standpoint patient will be cleared for discharge from an orthopedic standpoint once he has completed his therapy evaluations and final posthospital placement decisions are made. Patient will continue to be weightbearing as tolerated Continue PT and OT evaluations Multimodal pain regimen however we will eliminate the muscle relaxer at this time Aspirin 81 mg twice daily for DVT prophylaxis Anticipate discharge to rehab/nursing facility Please leave dressings in place until his follow-up visit, if dressings need to be replaced they may be changed with Optifoam dressings Patient will follow-up with our office roughly 2 weeks from his surgery date for updated x-rays and incision site evaluation Antione Conde MD
--- NOTE | 2024-07-02 16:31 | P.PN ---
Progress Note - Text Progress Note Date: 07/02/24 - Chief Complaint Left hip injury - History of Present Illness This is a pleasant 78-year-old patient, follows with Dr. John Quiñonez. Chronic medical conditions include dementia, essential hypertension, colon cancer 2013 with some surgical intervention. History is obtained by patient's and daughter at the bedside. Patient has significant dementia. At baseline the able to ambulate well. He was walking in took a misstep on a curb falling on his left hip. CT scan in the ER did show nondisplaced comminuted fracture involving the greater trochanter of the proximal left femur. Some pain present. No chest pain or shortness breath. Able to walk good distance. No cardiac history. June 30: Patient underwent surgical repair of left hip this morning. Postprocedure received pain medications. Rather lethargic. Patient had been in pain. Reflecting high blood pressure. July 01: Patient doing much better today. Awake. Resting in bed. and family at the bedside. Tolerated diet. Blood pressure bit on the higher side. Adjust antihypertensives. Eating well. DC IV fluids July 02: Seen this morning. Patient received Dilaudid around 2 AM. Also [place] and Flexeril. Was also sleepy this morning. Will DC Dilaudid. Therefore patient was total assist with physical therapy this morning. Likely for that reason patient's oral intake is also decreased this morning. For blood pressure will add Catapres 0.1 twice daily. Active Medications Acetaminophen (Acetaminophen Tab 325 Mg Tab) 650 mg PO Q6HR PRN PRN Reason: Mild Pain or Fever > 100.5 Hydrocodone Bitart/Acetaminophen (Hydrocodone/Apap 5-325mg 1 Each Tab) 1 each PO Q4HR PRN PRN Reason: Pain Last Admin: 07/02/24 16:11 Dose: 1 each Aspirin (Aspirin 81 Mg) 81 mg PO BID [facility] Last Admin: 07/02/24 10:19 Dose: 81 mg Calcium Carbonate (Calcium Carb-Vit D 500 Mg-5 Mcg Tab) 1 each PO BID-W/MEALS [facility] Last Admin: 07/02/24 10:19 Dose: 1 each Cyanocobalamin (Cyanocobalamin 500 Mcg Tab) 2,000 mcg PO DAILY [facility] Last Admin: 07/02/24 10:19 Dose: 2,000 mcg Donepezil HCl (Donepezil 10 Mg Tab) 20 mg PO DAILY [facility] Last Admin: 07/02/24 10:19 Dose: 20 mg Hydralazine HCl (Hydralazine Hcl 20 Mg/Ml 1 Ml Vial) 10 mg IVP Q6HR PRN PRN Reason: Blood Pressure - High Last Admin: 07/02/24 01:37 Dose: 10 mg Losartan Potassium (Losartan 50 Mg Tab) 50 mg PO BID [facility] Last Admin: 07/02/24 10:19 Dose: 50 mg Magnesium Hydroxide (Magnesium Hydroxide 2,400 Mg/30 Ml Cup) 2,400 mg PO DAILY PRN PRN Reason: Constipation Last Admin: 07/02/24 10:18 Dose: 2,400 mg Naloxone HCl (Naloxone 0.4 Mg/Ml 1 Ml Vial) 0.2 mg IV Q2M PRN PRN Reason: Opioid Reversal Naloxone HCl (Naloxone 0.4 Mg/Ml 1 Ml Vial) 0.2 mg IV Q2M PRN PRN Reason: Opioid Reversal Ondansetron HCl (Ondansetron 4 Mg/2 Ml Vial) 4 mg IVP Q8HR PRN PRN Reason: Nausea And Vomiting Pantoprazole Sodium (Pantoprazole 40 Mg Tablet) 40 mg PO DAILY [facility] Last Admin: 07/02/24 10:19 Dose: 40 mg Senna/Docusate Sodium (Sennosides-Docusate Sodium 1 Each Tab) 2 each PO HS [facility] Last Admin: 07/01/24 21:08 Dose: 2 each 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 No alcohol. Physical examination: VITAL SIGNS: 99.6, 108, 16, 156 per 83, 98% room air GENERAL: BMI 22.8, laying in bed a bit sleepy EYES: Pupils equal. Conjunctiva luis l. HEENT: External appearance of nose and ears normal, oral cavity grossly normal. NECK: JVD not raised; masses not palpable. HEART: First and second heart sounds are normal; no edema. LUNGS: Respiratory rate normal; clear to auscultation. ABDOMEN: Soft, nontender, liver spleen not palpable, no masses palpable. PSYCH: Answering questions but sleepy MUSCULOSKELETAL:No Clubbing/cyanosis;muscles-grossly intact. OptiForm dressing over incision site INVESTIGATIONS, reviewed in the clinical context: July 01: White count 8.5 hemoglobin 12.5 platelets 261 potassium 4.5 BUN 21 creatinine 1.43 June 29, 2024: White count 8.9 hemoglobin 12.1 platelets 273 sodium 139 potassium 5 BUN 16.3 creatinine 1.7 UA: Protein trace Chest x-ray film personally reviewed by me-borderline cardiomegaly. Questionable apical mass right side EKG tracing personally reviewed by me-sinus bradycardia CT left hip: Acute comminuted nondisplaced fracture involving the greater trochanter. Colonic diverticulosis. Prostatomegaly. Urinary bladder calculi CT chest no acute process. Abnormal 2.2 cm right mid kidney cystic lesion with suggested enhancement. Bilateral renal calculi. Colonic diverticulosis. Abnormality positioning of the right subclavian artery right common carotid right brachiocephalic vein. Assessment plan: - Acute comminuted nondisplaced fracture involving the greater trochanter of the left hip. Secondary to trauma, fall from a misstep June 30: Operative fixation of the left hip with cephalomedullary implant, by Dr. Conde - Chronic colonic diverticulosis, asymptomatic - BPH - Bilateral renal calculi. 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 DC lisinopril. Cozaar 50 mg twice daily Start Catapres 0.1 mg twice daily - DVT prophylaxis Subcu Lovenox 40 mg daily - Chronic kidney disease stage III likely nephrosclerosis - Perioperative medical restratification. Patient has no cardiac symptoms. No respiratory symptoms. Does walk a long distance. Medically stable to proceed with surgery with low to moderate risk because of age. - Osteopenia [place] with calcium supplement - Urinary bladder calculi, asymptomatic - Full code - Patient's daughter Mer is the medical POA. Stop Dilaudid. Add Catapres Past Medical History Past Medical History: Cancer, Dementia, Hypertension Additional Past Medical History / Comment(s): colon cancer 2013 History of Any Multi-Drug Resistant Organisms: None Reported Past Surgical History: Appendectomy, Bowel Resection, Hernia Repair Additional Past Surgical History / Comment(s): colon cancer surgery, Past Anesthesia/Blood Transfusion Reactions: No Reported Reaction Past Psychological History: No Psychological Hx Reported Smoking Status: Former smoker Past Alcohol Use History: None Reported Past Drug Use History: None Reported
[2024-07-02] MEDS: cloNIDine HCL 0.1 MG TAB PO SCH (20:50)
[2024-07-03 08:41] LABS: Basophils # (A) 0.05 X 10*3/uL (0.00-0.10); Basophils % (A) 0.7 %; Eosinophils # (A) 0.18 X 10*3/uL (0.04-0.35); Eosinophils % (A) 2.6 %; HCT 29.7 % (39.6-50.0); HGB 9.6 g/dL (13.0-17.0); Lymphocytes # (A) 1.22 X 10*3/uL (0.90-5.00); Lymphocytes % (A) 17.8 %; MCHC 32.3 g/dL (32.0-37.0); MCV 89.7 FL (80.0-97.0); Mean Platelet Volume 9.7 FL (9.5-12.2); Monocytes # (A) 0.74 X 10*3/uL (0.20-1.00); Monocytes % (A) 10.8 %; NRBC Per 100 WBC 0 X 10*3/uL (0.00-0.01); Neutrophils # (A) 4.66 X 10*3/uL (1.80-7.70); Neutrophils % (A) 67.8 %; Platelet Count 256 X 10*3/uL (140-440); RBC 3.31 X 10*6/uL (4.40-5.60); RDW 14.1 % (11.5-14.5); WBC 6.87 X 10*3/uL (4.50-10.00)
[2024-07-03 08:54] LABS: BUN/Creat Ratio 13.86 Ratio (12.00-20.00); Blood Urea Nitrogen 19.4 mg/dL (9.0-27.0); Calcium 9.4 mg/dL (8.7-10.3); Carbon Dioxide 26.2 mmol/L (21.6-31.8); Chloride 106 mmol/L (96-109); Glucose 104 mg/dL (70-110); Magnesium 2.3 mg/dL (1.5-2.4); Potassium 4.4 mmol/L (3.5-5.5); Sodium 139 mmol/L (135-145)
--- NOTE | 2024-07-03 10:41 | P.PN ---
Subjective Patient is seen in follow-up for chronic kidney disease. Renal function near baseline. Underwent left hip surgical repair June 30, 2024. Resting in bed. Family present at bedside. Vital signs are stable. General: No acute distress. HEENT: Head exam is unremarkable. LUNGS: No audible rhonchi or wheezes. HEART: Rate and Rhythm are regular. ABDOMEN: Nontender. EXTREMITITES: No edema. Objective - Vital Signs Vital signs: Vital Signs Temp 97.6 F 07/03/24 00:50 Pulse 95 07/03/24 00:50 Resp 17 07/03/24 00:50 BP 126/75 07/03/24 00:50 Pulse Ox 97 07/03/24 00:50 FiO2 Intake & Output 07/02/24 07/03/24 07/03/24 18:59 06:59 18:59 Output Total 650 1 75 Balance -650 -1 -75 Output: Urine 650 1 75 Other: Voiding Method Bedside Commode Urinal Urinal # Voids 2 # Bowel Movements 2 1 - Labs CBC & Chem 7: 07/03/24 02:49 07/03/24 02:49 Labs: Abnormal Lab Results - Last 24 Hours (Table) 07/03/24 07/03/24 Range/Units 02:49 02:49 RBC 3.31 L (4.40-5.60) X 10*6/uL Hgb 9.6 L (13.0-17.0) g/dL Hct 29.7 L (39.6-50.0) % Est GFR (CKD-EPI) 51 L (>=60) Assessment and Plan Plan: Assessment: 1. Chronic kidney disease stage IV secondary to nephrosclerosis and underlying nephrolithiasis. GFR at baseline. 2. Status post fall with left hip fracture status post surgical repair June 30, 2024. 3. Hypertension with chronic kidney disease. Controlled. 4. Bilateral nonobstructive nephrolithiasis. 5. Complex right renal cyst. Oncology following. MRI pending. Plan: Off IV fluids. Encouraged oral intake. Avoid nephrotoxins. Losartan resumed. Maintain as needed hydralazine. Continue to monitor renal function and urine output.
--- NOTE | 2024-07-03 11:11 | P.PN ---
Subjective Progress Note Date: 07/03/24 This is an 78-year-old male who is status post placement of cephalomedullary nail for left greater trochanteric fracture with extension into the intertrochanteric region. This is postoperative day #3 and patient is seen and evaluated at bedside today. Patient is a poor historian due to history of dementia, but family present at bedside today denies any new complaints. Objective - Vital Signs Vital signs: Vital Signs Temp 97.6 F 07/03/24 00:50 Pulse 95 07/03/24 00:50 Resp 17 07/03/24 00:50 BP 126/75 07/03/24 00:50 Pulse Ox 97 07/03/24 00:50 FiO2 Intake & Output 07/02/24 07/03/24 07/03/24 18:59 06:59 18:59 Output Total 650 1 75 Balance -650 -1 -75 Output: Urine 650 1 75 Other: Voiding Method Bedside Commode Urinal Urinal # Voids 2 # Bowel Movements 2 1 - Exam Vital signs are stable. Patient is in no acute distress and is alert and oriented 3. Calf is soft and nontender to palpation. Dressings are clean, dry, and intact. Patient has full foot and ankle motion without pain or difficulty. Sensation intact. Neurovascular status and circulatory status are intact. - Labs CBC & Chem 7: 07/03/24 02:49 07/04/24 03:22 Labs: Abnormal Lab Results - Last 24 Hours (Table) 07/03/24 07/03/24 Range/Units 02:49 02:49 RBC 3.31 L (4.40-5.60) X 10*6/uL Hgb 9.6 L (13.0-17.0) g/dL Hct 29.7 L (39.6-50.0) % Est GFR (CKD-EPI) 51 L (>=60) Assessment and Plan (1) Fall Status: Acute Code(s): W19.XXXA - UNSPECIFIED FALL, INITIAL ENCOUNTER SNOMED Code(s): 1806184 (2) Greater trochanter fracture Status: Acute Priority: High Code(s): S72.113A - DISP FX OF GREATER TROCHANTER OF UNSP FEMUR, INIT SNOMED Code(s): 825028423 (3) Left hip pain Status: Acute Code(s): M25.552 - PAIN IN LEFT HIP SNOMED Code(s): 01356034 Plan: Continue routine postop care and pain control. Continue anticoagulation with aspirin 81mg bid Weightbearing as tolerated with a walker. Leave dressings in place until follow up visit Appreciate input from internal medicine, nephrology and oncology. Patient is having an MRI of the kidney today. Anticipate discharge to ECF once cleared medically. Patient was seen and independently examined today but I agree with the above interval history and exam. Patient is more alert on exam today as he has had his pain regimen paired down. Family is also present and note he has made some progress with ambulation with therapy. Patient will be having MRI of the kidnes completed prior to dishcarge to his facility. dressings remain intact and well appearing, no calf tenderness, gentle hip ROM is pain free, patient able to actively move the ankle, foot and knee with minimal discomfort. sensation and capillary refill remains intact throughout the lower extremity. No reports from patient currently or family of any new onset shortness of breath or chest pain. Plan as noted above patient will follow up in our office two weeks post op for further evaluation.
--- NOTE | 2024-07-03 12:39 | MR ---
EXAMINATION TYPE: MR kidney wo/w con DATE OF EXAM: 07/03/2024 12:01 PM COMPARISON: Chest CT 5 days earlier CLINICAL INDICATION: Male, 78 years old with history of renal mass on CT, Renal mass on CT, IV Contrast: 6.5 cc Gadobutrol (None if empty) CONTRAST: Standard multiplanar, multisequence MRI departmental protocol images were obtained without contrast a nd with 6.5 mL intravenous Gadobutrol gadolinium contrast. Imaging performed of the abdomen focusing on the kidneys. FINDINGS: Kidneys: Some cortical thinning and diminished size to both kidneys. No concerning solid or cystic re nal mass in the left kidney. No hydronephrosis is present. Right kidney has several scattered simple- appearing thin-walled cysts most prominent in upper to mid pole level. Corresponding to area of racheal rn on recent CT there is a partially exophytic 2.0 cm thin-walled cyst laterally upper pole level of the right kidney. No suspicious solid enhancing masses in the right kidney are present. No right-side d hydronephrosis is seen. Other: Lung bases show dependent opacity favoring atelectasis. The liver, spleen, and both adrenal gl ands appear within normal limits. No internal gallstones. No abnormal small or large bowel dilatation . Distal colonic diverticulosis is present. Osseous structures are intact. No AAA. Susceptibility art ifact from surgical clips oriented horizontally in the deep anterior abdominal wall is noted.. IMPRESSION: No suspicious solid renal masses identified to suggest neoplasm. [facility], , 07/03/2024 12:37 PM
[2024-07-03] MEDS: SODIUM FERRIC GLUCONAT-SUCROSE 125 MG in SODIUM CHLORIDE 0.9% 100 ML IVPB SCH (13:18)
--- NOTE | 2024-07-03 17:01 | P.PN ---
Progress Note - Text Progress Note Date: 07/03/24 - Chief Complaint Left hip injury - History of Present Illness This is a pleasant 78-year-old patient, follows with Dr. John Quiñonez. Chronic medical conditions include dementia, essential hypertension, colon cancer 2013 with some surgical intervention. History is obtained by patient's and daughter at the bedside. Patient has significant dementia. At baseline the able to ambulate well. He was walking in took a misstep on a curb falling on his left hip. CT scan in the ER did show nondisplaced comminuted fracture involving the greater trochanter of the proximal left femur. Some pain present. No chest pain or shortness breath. Able to walk good distance. No cardiac history. June 30: Patient underwent surgical repair of left hip this morning. Postprocedure received pain medications. Rather lethargic. Patient had been in pain. Reflecting high blood pressure. July 01: Patient doing much better today. Awake. Resting in bed. and family at the bedside. Tolerated diet. Blood pressure bit on the higher side. Adjust antihypertensives. Eating well. DC IV fluids July 02: Seen this morning. Patient received Dilaudid around 2 AM. Also [place] and Flexeril. Was also sleepy this morning. Will DC Dilaudid. Therefore patient was total assist with physical therapy this morning. Likely for that reason patient's oral intake is also decreased this morning. For blood pressure will add Catapres 0.1 twice daily. July 03: Does get a bit sleepy with [place]. Balance between pain and wakefulness. Eating fair. Did drop her hemoglobin. No significant bruising at the incision site. No dark stools. Give IV iron. Discussed with the and daughter. Active Medications Acetaminophen (Acetaminophen Tab 325 Mg Tab) 650 mg PO Q6HR PRN PRN Reason: Mild Pain or Fever > 100.5 Hydrocodone Bitart/Acetaminophen (Hydrocodone/Apap 5-325mg 1 Each Tab) 1 each PO Q4HR PRN PRN Reason: Pain Last Admin: 07/02/24 20:50 Dose: 1 each Aspirin (Aspirin 81 Mg) 81 mg PO BID [facility] Last Admin: 07/03/24 08:36 Dose: 81 mg Calcium Carbonate (Calcium Carb-Vit D 500 Mg-5 Mcg Tab) 1 each PO BID-W/MEALS [facility] Last Admin: 07/03/24 08:49 Dose: 1 each Clonidine (Clonidine Hcl 0.1 Mg Tab) 0.1 mg PO BID@0800,1999 [facility] Last Admin: 07/03/24 08:36 Dose: 0.1 mg Cyanocobalamin (Cyanocobalamin 500 Mcg Tab) 2,000 mcg PO DAILY [facility] Last Admin: 07/03/24 08:37 Dose: 2,000 mcg Donepezil HCl (Donepezil 10 Mg Tab) 20 mg PO DAILY [facility] Last Admin: 07/03/24 08:37 Dose: 20 mg Hydralazine HCl (Hydralazine Hcl 20 Mg/Ml 1 Ml Vial) 10 mg IVP Q6HR PRN PRN Reason: Blood Pressure - High Last Admin: 07/02/24 01:37 Dose: 10 mg Ferric Sodium Gluconate 125 mg (/ Sodium Chloride) 110 mls @ 100 mls/hr IVPB DAILY [facility] Stop: 07/04/24 10:05 Last Admin: 07/03/24 13:18 Dose: 100 mls/hr Losartan Potassium (Losartan 50 Mg Tab) 50 mg PO BID [facility] Last Admin: 07/03/24 08:37 Dose: 50 mg Magnesium Hydroxide (Magnesium Hydroxide 2,400 Mg/30 Ml Cup) 2,400 mg PO DAILY PRN PRN Reason: Constipation Last Admin: 07/02/24 10:18 Dose: 2,400 mg Naloxone HCl (Naloxone 0.4 Mg/Ml 1 Ml Vial) 0.2 mg IV Q2M PRN PRN Reason: Opioid Reversal Naloxone HCl (Naloxone 0.4 Mg/Ml 1 Ml Vial) 0.2 mg IV Q2M PRN PRN Reason: Opioid Reversal Ondansetron HCl (Ondansetron 4 Mg/2 Ml Vial) 4 mg IVP Q8HR PRN PRN Reason: Nausea And Vomiting Pantoprazole Sodium (Pantoprazole 40 Mg Tablet) 40 mg PO DAILY [facility] Last Admin: 07/03/24 08:37 Dose: 40 mg Senna/Docusate Sodium (Sennosides-Docusate Sodium 1 Each Tab) 2 each PO HS [facility] Last Admin: 07/02/24 20:50 Dose: 2 each 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 No alcohol. Physical examination: VITAL SIGNS: 98.6, 67, 17, 137 x 71, 99% room air GENERAL: BMI 22.8, comfortable EYES: Pupils equal. Conjunctiva luis l. HEENT: External appearance of nose and ears normal, oral cavity grossly normal. NECK: JVD not raised; masses not palpable. HEART: First and second heart sounds are normal; no edema. LUNGS: Respiratory rate normal; clear to auscultation. ABDOMEN: Soft, nontender, liver spleen not palpable, no masses palpable. PSYCH: Answering questions but sleepy MUSCULOSKELETAL:No Clubbing/cyanosis;muscles-grossly intact. OptiForm dressing over incision site INVESTIGATIONS, reviewed in the clinical context: July 03: Hemoglobin 9.6 potassium 4.4 creatinine 1.4 July 01: White count 8.5 hemoglobin 12.5 platelets 261 potassium 4.5 BUN 21 creatinine 1.43 June 29, 2024: White count 8.9 hemoglobin 12.1 platelets 273 sodium 139 potassium 5 BUN 16.3 creatinine 1.7 UA: Protein trace Chest x-ray film personally reviewed by me-borderline cardiomegaly. Questionable apical mass right side EKG tracing personally reviewed by me-sinus bradycardia CT left hip: Acute comminuted nondisplaced fracture involving the greater trochanter. Colonic diverticulosis. Prostatomegaly. Urinary bladder calculi CT chest no acute process. Abnormal 2.2 cm right mid kidney cystic lesion with suggested enhancement. Bilateral renal calculi. Colonic diverticulosis. Abnormality positioning of the right subclavian artery right common carotid right brachiocephalic vein. Assessment plan: - Acute comminuted nondisplaced fracture involving the greater trochanter of the left hip. Secondary to trauma, fall from a misstep June 30: Operative fixation of the left hip with cephalomedullary implant, by Dr. Conde - Chronic colonic diverticulosis, asymptomatic - Acute postprocedure blood cell anemia expected from surgery IV Ferrlecit - BPH - Bilateral renal calculi. 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 DC lisinopril. Cozaar 50 mg twice daily Catapres 0.1 mg twice daily - DVT prophylaxis Subcu Lovenox 40 mg daily - Chronic kidney disease stage III likely nephrosclerosis - Perioperative medical risk-stratification. Patient has no cardiac symptoms. No respiratory symptoms. Does walk a long distance. Medically stable to proceed with surgery with low to moderate risk because of age. - Osteopenia [place] with calcium supplement - Urinary bladder calculi, asymptomatic - Full code - Patient's daughter Mer is the medical POA. KIERAN Caceres. Discussed with and daughter. Past Medical History Past Medical History: Cancer, Dementia, Hypertension Additional Past Medical History / Comment(s): colon cancer 2012 History of Any Multi-Drug Resistant Organisms: None Reported Past Surgical History: Appendectomy, Bowel Resection, Hernia Repair Additional Past Surgical History / Comment(s): colon cancer surgery, Past Anesthesia/Blood Transfusion Reactions: No Reported Reaction Past Psychological History: No Psychological Hx Reported Smoking Status: Former smoker Past Alcohol Use History: None Reported Past Drug Use History: None Reported
[2024-07-03] MEDS: ACETAMINOPHEN TAB 325 MG TAB PO PRN (18:53)
--- NOTE | 2024-07-04 00:03 | P.PN ---
Subjective Progress Note Date: 07/03/24 Principal diagnosis: renal mass In f/u today pt has no acute c/o, denies any pain, he is tired. Objective - Vital Signs Vital signs: Vital Signs Temp 97.6 F 07/03/24 00:50 Pulse 95 07/03/24 00:50 Resp 17 07/03/24 00:50 BP 126/75 07/03/24 00:50 Pulse Ox 97 07/03/24 00:50 FiO2 Intake & Output 07/02/24 07/03/24 07/03/24 18:59 06:59 18:59 Output Total 650 1 75 Balance -650 -1 -75 Output: Urine 650 1 75 Other: Voiding Method Bedside Commode Urinal Urinal # Voids 2 # Bowel Movements 2 1 - Constitutional General appearance: Present: average body habitus, cooperative, no acute distress - EENT Eyes: Present: anicteric sclerae, EOMI ENT: Present: hearing grossly normal - Respiratory Respiratory: bilateral: CTA - Cardiovascular Rhythm: regular - Gastrointestinal General gastrointestinal: Present: soft - Integumentary Integumentary: Present: normal - Neurologic Neurologic: Present: CNII-XII intact - Musculoskeletal Musculoskeletal: Present: strength equal bilaterally - Psychiatric Psychiatric Comment(s): alert, flat affect - Labs CBC & Chem 7: 07/03/24 02:49 07/03/24 02:49 Labs: Abnormal Lab Results - Last 24 Hours (Table) 07/03/24 07/03/24 Range/Units 02:49 02:49 RBC 3.31 L (4.40-5.60) X 10*6/uL Hgb 9.6 L (13.0-17.0) g/dL Hct 29.7 L (39.6-50.0) % Est GFR (CKD-EPI) 51 L (>=60) Assessment and Plan (1) Renal mass Current Visit: Yes Status: Ruled-out Code(s): N28.89 - OTHER SPECIFIED DISORDERS OF KIDNEY AND URETER SNOMED Code(s): 259047112 (2) Pulmonary nodule Current Visit: Yes Status: Acute Code(s): R91.1 - SOLITARY PULMONARY NODULE SNOMED Code(s): 778327129 (3) Greater trochanter fracture Current Visit: Yes Status: Acute Priority: High Code(s): S72.113A - DISP FX OF GREATER TROCHANTER OF UNSP FEMUR, INIT SNOMED Code(s): 601842867 Plan: Right renal mass -this is an incidental finding. -Based on the CT characteristics, there is concern for malignancy. MRI with renal protocol ordered. Reported, no findings concerning for malignancy. Nothing further from Oncology Lung nodule subcentimeter, nonspecific. No further workup at this time. Left hip fracture this appears to be traumatic, with no evidence of malignancy in the area of the fracture, on extensive imaging including CT scan and MRI. -Pt doing well post op
[2024-07-04 08:24] LABS: BUN/Creat Ratio 13.93 Ratio (12.00-20.00); Blood Urea Nitrogen 19.5 mg/dL (9.0-27.0); Calcium 9.5 mg/dL (8.7-10.3); Carbon Dioxide 25.2 mmol/L (21.6-31.8); Chloride 107 mmol/L (96-109); Glucose 85 mg/dL (70-110); Magnesium 2.2 mg/dL (1.5-2.4); Potassium 4.3 mmol/L (3.5-5.5); Sodium 141 mmol/L (135-145)
--- NOTE | 2024-07-04 10:24 | P.DS ---
Providers Date of admission: 06/28/24 20:38 Expected date of discharge: 07/04/24 Attending physician: Antione Conde MD Consults: 06/28/24 20:36 Consult Physician Routine Consulting Provider: Steve Berger Consult Reason/Comments: renal mass Do you want consulting provider notified?: Yes Consult Physician Routine Consulting Provider: Dilshad Nolan Consult Reason/Comments: medical management Do you want consulting provider notified?: Yes 06/28/24 21:15 Consult Physician Routine Consulting Provider: Susannah Delgado Consult Reason/Comments: ckd Do you want consulting provider notified?: Yes Primary care physician: John Quiñonez - Discharge Diagnosis(es) (1) Fall Status: Acute (2) Greater trochanter fracture Status: Acute Priority: High (3) Left hip pain Status: Acute Hospital Course: This is an 78-year-old male who sustained a fracture of his left hip after a fall. The patient presented for evaluation in the emergency room where a CT and MRI of the left hip revealed a greater trochanteric fracture of the left hip with extension into the intertrochanteric region. After discussion and consideration patient and family consent to proceed with operative fixation of the left hip with cephalomedullary nail. The patient is seen preoperatively by Dr. Conde and medically cleared for surgery by internal medicine. Patient is admitted to [facility] on 06/28/2024 and operative fixation of the left hip with cephalomedullary nail is performed on 06/30/2024. The procedure is performed without complication or sequelae. The patient is doing well postoperatively. Labs and vital signs are stable on day of discharge. Patient has been evaluated by nephrology and oncology for renal mass incidentally found on CT. MRI of the kidney was negative for malignancy. On day of discharge patient's hip incisions are healing well. There is minimal erythema. There is no drainage noted at this time. There is minimal soft tissue swelling to the hip and thigh. Patient has full foot and ankle motion without difficulty or pain. Calf is soft and nontender to palpation. Neurovascular status to the left lower extremity is intact. Patient is discharged to rehab in good condition. Please see med rec for accurate list of home medications. Patient Condition at Discharge: Stable Plan - Discharge Summary Discharge Rx Participant: Yes New Discharge Prescriptions: New cloNIDine HCL [Catapres] 0.1 mg PO BID@0800,2000 tab Ferrous Sulfate [Feosol] 325 mg PO DAILY #90 tab Aspirin [Adult Low Dose Aspirin EC] 81 mg PO BID 30 Days #60 tab HYDROcodone/APAP 5-325MG [[place] 5-325] 1 tab PO Q6HR PRN #28 tab PRN Reason: Pain Sennosides [Senokot] 2 tab PO DAILY PRN #60 tablet PRN Reason: Constipation Losartan [Cozaar] 50 mg PO BID tab Magnesium Hydroxide [Milk of Magnesia] 2,400 mg PO DAILY PRN ml PRN Reason: Constipation Calcium Carb-Vit D 500Mg-5Mcg [Oscal 500+D 5 Mcg (200 Iu)] 1 each PO BID- W/MEALS tab Sennosides-Docusate Sodium [Senokot-S] 2 each PO HS tab Acetaminophen Tab [Tylenol] 650 mg PO Q6HR PRN tab PRN Reason: Mild Pain Or Fever > 100.5 Continue Cyanocobalamin (Vitamin B-12) [Vitamin B-12] 2,000 mcg PO DAILY Donepezil [Aricept] 20 mg PO DAILY Discontinued lisinopriL [Zestril] 10 mg PO BID Discharge Medication List Cyanocobalamin (Vitamin B-12) [Vitamin B-12] 2,000 mcg PO DAILY 10/17/20 [History] Donepezil [Aricept] 20 mg PO DAILY 06/28/24 [History] Aspirin [Adult Low Dose Aspirin EC] 81 mg PO BID 30 Days #60 tab 06/30/24 [Rx] HYDROcodone/APAP 5-325MG [[place] 5-325] 1 tab PO Q6HR PRN #28 tab 06/30/24 [Rx] Sennosides [Senokot] 2 tab PO DAILY PRN #60 tablet 06/30/24 [Rx] Acetaminophen Tab [Tylenol] 650 mg PO Q6HR PRN tab 07/04/24 [Rx] Calcium Carb-Vit D 500Mg-5Mcg [Oscal 500+D 5 Mcg (200 Iu)] 1 each PO BID-W/MEALS tab 07/04/24 [Rx] Ferrous Sulfate [Feosol] 325 mg PO DAILY #90 tab 07/04/24 [Rx] Losartan [Cozaar] 50 mg PO BID tab 07/04/24 [Rx] Magnesium Hydroxide [Milk of Magnesia] 2,400 mg PO DAILY PRN ml 07/04/24 [Rx] Sennosides-Docusate Sodium [Senokot-S] 2 each PO HS tab 07/04/24 [Rx] cloNIDine HCL [Catapres] 0.1 mg PO BID@0800,2000 tab 07/04/24 [Rx] Follow up Appointment(s)/Referral(s): Antione Conde MD [STAFF PHYSICIAN] - 07/13/24 2:00 pm Yoli Gaspar [NON-STAFF] - As Needed John Quiñonez MD [Primary Care Provider] - 1-2 days Activity/Diet/Wound Care/Special Instructions: Weightbearing as tolerated with walker. Leave dressing intact until follow up visit. if dressings need to be changed may replaced with dry dressings such as gauze and ABD pads or optifoam dressings if available May shower with initial dressing intact and after removal. If dressing become saturated, please remove and replace as above. Please take aspirin 81mg twice daily for 30 days to prevent blood clots. Recommend use of compression stockings daily until follow up to help prevent swelling and blood clots. May remove at night before sleeping. Please follow-up with [facility] in 2 weeks and call with any questions or concerns, . I agree wtih the above documented hospital course and plan for discharge. Antione Conde MD Discharge Disposition: TRANSFER TO SNF/ECF
--- NOTE | 2024-07-04 11:58 | P.PN ---
Subjective Patient is seen in follow-up for chronic kidney disease. Renal function near baseline. Underwent left hip surgical repair June 30, 2024. Resting in bed. Awake and alert. Family present at bedside. Vital signs are stable. General: No acute distress. HEENT: Head exam is unremarkable. LUNGS: No audible rhonchi or wheezes. HEART: Rate and Rhythm are regular. ABDOMEN: Nontender. EXTREMITITES: No edema. Objective - Vital Signs Vital signs: Vital Signs Temp 97.6 F 07/04/24 07:08 Pulse 59 L 07/04/24 07:40 Resp 18 07/04/24 07:40 BP 161/77 07/04/24 07:08 Pulse Ox 99 07/04/24 07:08 FiO2 Intake & Output 07/03/24 07/04/24 07/04/24 18:59 06:59 18:59 Output Total 75 400 Balance -75 -400 Output: Urine 75 400 Other: Voiding Method Urinal Bedside Commode Bedside Commode Urinal Urinal # Voids 2 # Bowel Movements 1 1 1 - Labs CBC & Chem 7: 07/03/24 02:49 07/04/24 03:22 Labs: Abnormal Lab Results - Last 24 Hours (Table) 07/04/24 Range/Units 03:22 Est GFR (CKD-EPI) 51 L (>=60) Assessment and Plan Plan: Assessment: 1. Chronic kidney disease stage IV secondary to nephrosclerosis and underlying nephrolithiasis. GFR at baseline. 2. Status post fall with left hip fracture status post surgical repair June 30, 2024. 3. Hypertension with chronic kidney disease. Controlled. 4. Bilateral nonobstructive nephrolithiasis. 5. Complex right renal cyst. Oncology following. MRI showed no solid renal masses. Plan: Off IV fluids. Encouraged oral intake. Avoid nephrotoxins. Losartan resumed. Continue to monitor renal function and urine output. Follow-up outpatient 1 week postdischarge.
[2024-07-04 14:41] VITALS: BP 121/71; PULSE 69; RESP 16; TEMP 97.4
--- NOTE | 2024-07-04 16:14 | P.PN ---
Progress Note - Text Progress Note Date: 07/04/24 - Chief Complaint Left hip injury - History of Present Illness This is a pleasant 78-year-old patient, follows with Dr. John Quiñonez. Chronic medical conditions include dementia, essential hypertension, colon cancer 2013 with some surgical intervention. History is obtained by patient's and daughter at the bedside. Patient has significant dementia. At baseline the able to ambulate well. He was walking in took a misstep on a curb falling on his left hip. CT scan in the ER did show nondisplaced comminuted fracture involving the greater trochanter of the proximal left femur. Some pain present. No chest pain or shortness breath. Able to walk good distance. No cardiac history. June 30: Patient underwent surgical repair of left hip this morning. Postprocedure received pain medications. Rather lethargic. Patient had been in pain. Reflecting high blood pressure. July 01: Patient doing much better today. Awake. Resting in bed. and family at the bedside. Tolerated diet. Blood pressure bit on the higher side. Adjust antihypertensives. Eating well. DC IV fluids July 02: Seen this morning. Patient received Dilaudid around 2 AM. Also Tenstrike and Flexeril. Was also sleepy this morning. Will DC Dilaudid. Therefore patient was total assist with physical therapy this morning. Likely for that reason patient's oral intake is also decreased this morning. For blood pressure will add Catapres 0.1 twice daily. July 03: Does get a bit sleepy with Tenstrike. Balance between pain and wakefulness. Eating fair. Did drop her hemoglobin. No significant bruising at the incision site. No dark stools. Give IV iron. Discussed with the and daughter. July 04: Laying in bed. Comfortable. Tylenol has been working well for pain. Eating well today. Will go to the F today. Received IV iron. Ferrous sulfate added. Questions answered to the and daughters at the bedside. Patient was having visual hallucination including seeing birds and rats in the room. Discussed the reason for the same. Avoid Tenstrike Active Medications Acetaminophen (Acetaminophen Tab 325 Mg Tab) 650 mg PO Q6HR PRN PRN Reason: Mild Pain or Fever > 100.5 Last Admin: 07/04/24 13:32 Dose: 650 mg Hydrocodone Bitart/Acetaminophen (Hydrocodone/Apap 5-325mg 1 Each Tab) 1 each PO Q4HR PRN PRN Reason: Pain Last Admin: 07/02/24 20:50 Dose: 1 each Aspirin (Aspirin 81 Mg) 81 mg PO BID [facility] Last Admin: 07/04/24 08:05 Dose: 81 mg Calcium Carbonate (Calcium Carb-Vit D 500 Mg-5 Mcg Tab) 1 each PO BID-W/MEALS [facility] Last Admin: 07/04/24 06:50 Dose: 1 each Clonidine (Clonidine Hcl 0.1 Mg Tab) 0.1 mg PO BID@0800,1999 [facility] Last Admin: 07/04/24 08:05 Dose: 0.1 mg Cyanocobalamin (Cyanocobalamin 500 Mcg Tab) 2,000 mcg PO DAILY [facility] Last Admin: 07/04/24 08:04 Dose: 2,000 mcg Donepezil HCl (Donepezil 10 Mg Tab) 20 mg PO DAILY [facility] Last Admin: 07/04/24 08:04 Dose: 20 mg Hydralazine HCl (Hydralazine Hcl 20 Mg/Ml 1 Ml Vial) 10 mg IVP Q6HR PRN PRN Reason: Blood Pressure - High Last Admin: 07/02/24 01:37 Dose: 10 mg Losartan Potassium (Losartan 50 Mg Tab) 50 mg PO BID [facility] Last Admin: 07/04/24 08:04 Dose: 50 mg Magnesium Hydroxide (Magnesium Hydroxide 2,400 Mg/30 Ml Cup) 2,400 mg PO DAILY PRN PRN Reason: Constipation Last Admin: 07/02/24 10:18 Dose: 2,400 mg Naloxone HCl (Naloxone 0.4 Mg/Ml 1 Ml Vial) 0.2 mg IV Q2M PRN PRN Reason: Opioid Reversal Naloxone HCl (Naloxone 0.4 Mg/Ml 1 Ml Vial) 0.2 mg IV Q2M PRN PRN Reason: Opioid Reversal Ondansetron HCl (Ondansetron 4 Mg/2 Ml Vial) 4 mg IVP Q8HR PRN PRN Reason: Nausea And Vomiting Pantoprazole Sodium (Pantoprazole 40 Mg Tablet) 40 mg PO DAILY [facility] Last Admin: 07/04/24 08:04 Dose: 40 mg Senna/Docusate Sodium (Sennosides-Docusate Sodium 1 Each Tab) 2 each PO HS [facility] Last Admin: 07/03/24 23:05 Dose: 2 each 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 No alcohol. Physical examination: VITAL SIGNS: 97.4, 69, 16, 121 x 71, 98% room air GENERAL: BMI 22.8, comfortable EYES: Pupils equal. Conjunctiva luis l. HEENT: External appearance of nose and ears normal, oral cavity grossly normal. NECK: JVD not raised; masses not palpable. HEART: First and second heart sounds are normal; no edema. LUNGS: Respiratory rate normal; clear to auscultation. ABDOMEN: Soft, nontender, liver spleen not palpable, no masses palpable. PSYCH: Answering simple questions. Patient is seeing birds and rats in the room. MUSCULOSKELETAL:No Clubbing/cyanosis;muscles-grossly intact. OptiForm dressing over incision site INVESTIGATIONS, reviewed in the clinical context: July 04: Potassium 4.3 creatinine 1.4 July 03: Hemoglobin 9.6 potassium 4.4 creatinine 1.4 July 01: White count 8.5 hemoglobin 12.5 platelets 261 potassium 4.5 BUN 21 creatinine 1.43 June 29, 2024: White count 8.9 hemoglobin 12.1 platelets 273 sodium 139 potassium 5 BUN 16.3 creatinine 1.7 UA: Protein trace Chest x-ray film personally reviewed by me-borderline cardiomegaly. Questionable apical mass right side EKG tracing personally reviewed by me-sinus bradycardia CT left hip: Acute comminuted nondisplaced fracture involving the greater trochanter. Colonic diverticulosis. Prostatomegaly. Urinary bladder calculi CT chest no acute process. Abnormal 2.2 cm right mid kidney cystic lesion with suggested enhancement. Bilateral renal calculi. Colonic diverticulosis. Abnormality positioning of the right subclavian artery right common carotid right brachiocephalic vein. Assessment plan: - Acute comminuted nondisplaced fracture involving the greater trochanter of the left hip. Secondary to trauma, fall from a misstep June 30: Operative fixation of the left hip with cephalomedullary implant, by Dr. Conde - Chronic colonic diverticulosis, asymptomatic - Acute postprocedure blood cell anemia expected from surgery IV Ferrlecit x 2 doses given. Oral ferrous sulfate - Visual hallucinations in formal patient seeing birds in the room and rats. Likely combination of delirium and patient getting Tenstrike. Avoid the latter. Discussed with family. - BPH - Bilateral renal calculi. 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 DC lisinopril. Cozaar 50 mg twice daily Catapres 0.1 mg twice daily - DVT prophylaxis Subcu Lovenox 40 mg daily - Chronic kidney disease stage III likely nephrosclerosis - Perioperative medical risk-stratification. Patient has no cardiac symptoms. No respiratory symptoms. Does walk a long distance. Medically stable to proceed with surgery with low to moderate risk because of age. - Osteopenia [place] with calcium supplement - Urinary bladder calculi, asymptomatic - Full code - Patient's daughter Mer is the medical POA. Disposition to [facility] today. Past Medical History Past Medical History: Cancer, Dementia, Hypertension Additional Past Medical History / Comment(s): colon cancer 2012 History of Any Multi-Drug Resistant Organisms: None Reported Past Surgical History: Appendectomy, Bowel Resection, Hernia Repair Additional Past Surgical History / Comment(s): colon cancer surgery, Past Anesthesia/Blood Transfusion Reactions: No Reported Reaction Past Psychological History: No Psychological Hx Reported Smoking Status: Former smoker Past Alcohol Use History: None Reported Past Drug Use History: None Reported
== END 2024-07-04 16:28 | DRG 481 ==
LOC: EC 16:47 → 4SSUR 20:38
PROVIDERS: ADMIT Orthopaedic Surgery; ATTEND Orthopaedic Surgery
PROC: 0QH736Z Insertion of Intramedullary Internal Fixation Device into Left Upper Femur, Percutaneous Approach (ICD-10-PCS; principal; 2024-06-30 08:00)
PROC: 05HD33Z Insertion of Infusion Device into Right Cephalic Vein, Percutaneous Approach (ICD-10-PCS; 2024-07-02 11:00)
DX: S72.115A Nondisplaced fracture of greater trochanter of left femur, initial encounter for closed fracture (principal); D62 Acute posthemorrhagic anemia; N18.4 Chronic kidney disease, stage 4 (severe); S72.145A Nondisplaced intertrochanteric fracture of left femur, initial encounter for closed fracture; F02.B0 Dementia in other diseases classified elsewhere, moderate, without behavioral disturbance, psychotic disturbance, mood disturbance, and anxiety; I12.9 Hypertensive chronic kidney disease with stage 1 through stage 4 chronic kidney disease, or unspecified chronic kidney disease; G30.1 Alzheimer's disease with late onset; N28.1 Cyst of kidney, acquired; K57.30 Diverticulosis of large intestine without perforation or abscess without bleeding; M85.80 Other specified disorders of bone density and structure, unspecified site; N40.0 Benign prostatic hyperplasia without lower urinary tract symptoms; R91.1 Solitary pulmonary nodule; N21.0 Calculus in bladder; N28.89 Other specified disorders of kidney and ureter; W10.1XXA Fall (on)(from) sidewalk curb, initial encounter; Y93.01 Activity, walking, marching and hiking; N20.0 Calculus of kidney; Z79.82 Long term (current) use of aspirin; Z79.899 Other long term (current) drug therapy; Z85.038 Personal history of other malignant neoplasm of large intestine; Z87.891 Personal history of nicotine dependence; Z88.0 Allergy status to penicillin
CPT/HCPCS: 36410; 36415; 71045; 71260; 73501; 73502; 74183; 76937; 80048; 80053; 81001; 83735; 85025; 85610; 85730; 93005; 96360; 96372; 99285